=== PATIENT | female | born 1925 | race Caucasian/White ===

== ENCOUNTER 2016-11-03 11:25 | Inpatient (IN) | payer OTHER ==
[~2016-11-03] VITALS: Ht 152.4 cm; Wt 58.0 kg
[~2016-11-03 11:25] MED LIST: ADV25050 INH; AMLO-147 PO; ASPI-664 PO; ATOR20TA38 PO; CITA20TA11 PO; DOCU-159 PO; DONE10TA7 PO; ENOX30DI2 SC; HYDR-3498 PO; LORA-441 PO; OMEP40CA6 PO; TEMA15CA PO
[2016-11-03] MEDS ORDERED: CEFEPIME 2GM/50 ML (PMX) 50 ML IVPB STA (11:37)
[2016-11-03] MEDS ORDERED: SODIUM CHLORIDE 0.9% 1L BAG IV* STA (11:37)
[2016-11-03] MEDS ORDERED: ACETAMINOPHEN 650 MG SUPP PR ONE (12:00)
[2016-11-03] MEDS ORDERED: VANCOMYCIN 1 GM (PMX) 250 ML IVPB ONE (12:00)
[2016-11-03] MEDS ORDERED: CITA10TA72 PO (12:08)
[2016-11-03 12:09] LABS: ADD SCAN DIFF NO
[2016-11-03] MEDS ORDERED: QUET25TA33 PO (12:09)
[2016-11-03] MEDS ORDERED: ENAL5TAB PO (12:10)
[2016-11-03] MEDS ORDERED: ACET325T45 PO (12:10)
[2016-11-03] MEDS ORDERED: LEVO250T9 PO (12:11)
[2016-11-03 12:23] LABS: ABNORMAL IP MESSAGE 1; BASOPHILS % 0.2 % (0.0-2.0); HEMATOCRIT 31.4 % (37.0-47.0); HEMOGLOBIN 9.7 g/dl (12.0-16.0); LYMPHOCYTES # 0.6 10^3/ul (0.8-2.9); LYMPHOCYTES % 6.3 % (15.0-51.0); MEAN CORPUSCULAR HEMOGLOBIN 30.6 pg (29.0-33.0); MEAN CORPUSCULAR HGB CONC 30.9 g/dl (32.0-37.0); MEAN CORPUSCULAR VOLUME 99.1 fl (82.0-101.0); MEAN PLATELET VOLUME 11.3 fl (7.4-10.4); MONOCYTE # 0.3 10^3/ul (0.3-0.9); MONOCYTES % 3.4 % (0.0-11.0); NEUTROPHIL # 8.2 10^3/ul (1.6-7.5); NEUTROPHILS % 89.6 % (39.0-77.0); NUCLEATED RED BLOOD CELLS% 0.3 /100WBC (0.0-0.0); PLATELET COUNT 283 10^3/UL (140-415); RED BLOOD COUNT 3.17 10^6/ul (4.20-5.40); RED CELL DISTRIBUTION WIDTH 15.7 % (11.5-14.5); WHITE BLOOD COUNT 9.1 10^3/ul (4.8-10.8)
--- NOTE | 2016-11-03 12:25 | RADRPT ---
PROCEDURE: XR Chest. CLINICAL INDICATION: Chest pain TECHNIQUE: Single frontal view of the chest was obtained COMPARISON: 06/25/15 FINDINGS: The heart is enlarged. The thoracic aorta is calcified. There is elevation of the right diaphragm with mild bibasilar atelectatic changes. There is no pleural effusion or pneumothorax. RPTAT: AA IMPRESSION: Mild cardiomegaly. Calcified aorta consistent with atherosclerotic disease. Mild bibasilar atelectatic changes. .Jaquan Maldonado MD, Date Time Electronically viewed and signed by .Jaquan Maldonado MD, on 11/03/2016 12:24 .S/
[2016-11-03 12:26] LABS: ALBUMIN 4.2 g/dl (3.3-4.9); POTASSIUM 5.8 mmol/L (3.5-5.1)
[2016-11-03 12:29] LABS: ALBUMIN/GLOBULIN RATIO 1.5; BILIRUBIN,INDIRECT 0.4 mg/dl (0-1.1); BILIRUBIN,TOTAL 0.4 mg/dl (0.2-1.3); CREATININE 3.96 mg/dl (0.44-1.00)
[2016-11-03 12:30] LABS: CALCIUM 8.9 mg/dl (8.4-10.2)
[2016-11-03 12:31] LABS: INR 1.22; PROTIME 15.5 Sec (12.2-14.2); PT RATIO 1.2
--- NOTE | 2016-11-03 12:31 | RADRPT ---
PROCEDURE: CT Brain without contrast. CLINICAL INDICATION: Altered mental status TECHNIQUE: CT scan of the brain was performed on a multidetector high-resolution CT scan. Axial im aging was obtained of the brain without contrast administration. Coronal and sagittal reformatted i mages were obtained from the axial source images. Standard CT scan of the head without contrast prot ocols were performed. The total exam CTDI equals 42.81 mGy and the total exam DLP equals 630.2 mGy-cm. One or more of the following dose reduction techniques were used: - Automated exposure control. - Adjustment of the mA and/or kV according to patient size. Use of iterative reconstruction technique. COMPARISON: MR brain 01/21/2011. FINDINGS: The ventricular system and peripheral CSF spaces are proportionately and diffusely prominent consist ent with moderate to severe generalized cerebral volume loss. There is moderate to severe generaliz ed cerebellar volume loss. There is extensive periventricular and subcortical deep white matter holley nges consistent with chronic microvascular ischemic disease. Negative for intracranial masses hemor rhages or midline shift. There is remote lacunar infarct involving the right internal capsule and c cheli radiata. The bones and calvarium are intact. There is right sphenoid and bilateral ethmoid si nus disease. The frontal sinuses are hypoplastic. The mastoids are unremarkable. IMPRESSION: 1. No evidence of intracranial masses hemorrhages or midline shift. 2. Moderate to severe generalized cerebral volume loss and cerebellar volume loss. 3. Extensive nonspecific chronic microvascular ischemic disease. 4. Remote lacunar infarct involving the right internal capsule and euceda radiata. RPTAT:AAJJ Physician Dorota Date Time Electronically viewed and signed by Physician Dorota on 11/03/2016 12:31 BM/
[2016-11-03 12:32] LABS: PARTIAL THROMBOPLASTIN TIME 33.9 Sec (25.0-35.0)
[2016-11-03 12:41] LABS: TROPONIN-I 0.023 ng/ml (0.00-0.12)
[2016-11-03] MEDS ORDERED: ONDANSETRON 4 MG INJ IV PRN ×2 (13:30→14:30)
[2016-11-03] MEDS ORDERED: ACETAMINOPHEN 325 MG TAB PO PRN ×2 (13:30→14:30)
[2016-11-03 14:26] VITALS: TEMP 98.1
[2016-11-03 14:30] LABS: ADD UMIC YES; URINE BILIRUBIN (Dip) NEGATIVE (NEGATIVE); URINE BLOOD (Dip) TRACE (NEGATIVE); URINE COLOR YELLOW (YELLOW); URINE GLUCOSE (Dip) NEGATIVE (NEGATIVE); URINE KETONES (Dip) TRACE (NEGATIVE); URINE LEUKOCYTE ESTERASE (Dip) 3+ (NEGATIVE); URINE NITRITE (Dip) NEGATIVE (NEGATIVE); URINE TOTAL PROTEIN (Dip) TRACE (NEGATIVE); URINE UROBILINOGEN (Dip) 0.2 E.U./dL (0.1-1.0)
[2016-11-03] MEDS ORDERED: VANCOMYCIN IV PER PHARMACY XX SCH ×2 (14:30→21:00)
[2016-11-03] MEDS ORDERED: MAGNESIUM HYDROXIDE 30ML CUP PO PRN (14:30)
[2016-11-03] MEDS ORDERED: NACL 0.9% 3 ML SYG IV SCH (14:30)
[2016-11-03] MEDS ORDERED: HYDROCODONE/APAP (5/325) TAB PO PRN (14:30)
[2016-11-03] MEDS ORDERED: DOCUSATE SODIUM 100 MG CAP PO PRN (14:30)
[2016-11-03 14:40] LABS: BACTERIA,URINE MANY
[2016-11-03] MEDS ORDERED: ALBU2.5V3 NEB (14:56)
[2016-11-03] MEDS ORDERED: DOCU-144 PO (14:57)
[2016-11-03] MEDS ORDERED: ENAL5TAB81 PO (14:58)
[2016-11-03] MEDS ORDERED: ONDA8TAB9 PO (14:58)
[2016-11-03] MEDS ORDERED: HYDR-902 PO (14:59)
[2016-11-03] MEDS ORDERED: PROM6.2514 PO (14:59)
--- NOTE | 2016-11-03 15:00 | ERA ---
ER Documentation Chief Complaint Date/Time DATE: 11/03/16 TIME: 14:56 Chief Complaint GENERAL WEAKNESS AND FEVER WITH COUGH FOR THE PAST FEW DAYS. HPI Patient is an 89-year-old female who presents with shortness of breath and weakness. Please note the history and physical exam is limited secondary to the patient's mental status. The patient was brought in by ambulance. She came from home. I cannot obtain history otherwise. ROS All systems reviewed and are negative except as per history of present illness. Medications Home Meds Reported Medications Hydrocodone/Acetaminophen ([place]ris 10-325 Tablet) 1 Each Tablet, 1 EACH PO Q6 Y for PAIN, TAB 11/03/16 Promethazine Hcl* (Promethazine Hcl* Syrup) 6.25 Mg/5 Ml Syrup, 6.25 MG PO Q4 Y for COUGH, ML 11/03/16 Enalapril Maleate* (Vasotec*) 5 Mg Tablet, 5 MG PO DAILY, TAB 11/03/16 Ondansetron Hcl* (Zofran*) 8 Mg Tablet, 8 MG PO Q4 Y for NAUSEA AND OR VOMITING , TAB 11/03/16 Docusate Sodium* (Colace*) 100 Mg Capsule, 100 MG PO TID, #60 CAP 11/03/16 Albuterol Sulfate* (Albuterol Sulfate* Neb) 0.083%-3 Ml Neb, 2.5 MG NEB Q6 Y for WHEEZING AND SOB, #30 VIAL 11/03/16 Levofloxacin* (Levofloxacin*) 250 Mg Tablet, 250 MG PO DAILY, TAB FOR 7 DAYS STARTED 11-02-16 11/03/16 Enalapril Maleate* (Enalapril Maleate*) 5 Mg Tablet, 5 MG PO DAILY, TAB 11/03/16 Acetaminophen* (Acetaminophen*) 325 Mg Tablet, 325 MG PO Q6 Y for PAIN AND OR ELEVATED TEMP, #30 TAB 11/03/16 Quetiapine Fumarate* (Quetiapine Fumarate*) 25 Mg Tablet, 25 MG PO TID, TAB MORNING AFTER LUNCH AND BEDTIME 11/03/16 Citalopram Hydrobromide* (Celexa*) 10 Mg Tablet, 10 MG PO DAILY, #30 TAB 11/03/16 Omeprazole* (Omeprazole*) 40 Mg Capsule.dr, 40 MG PO DAILY, CAP 04/30/15 Amlodipine Besylate* (Amlodipine Besylate*) 10 Mg Tablet, 10 MG PO DAILY, TAB 04/30/15 Discontinued Reported Medications Atorvastatin Calcium* (Atorvastatin Calcium*) 20 Mg Tablet, 20 MG PO HS, TAB 04/30/15 Aspirin (Low Dose Aspirin) 81 Mg Tablet.dr, 81 MG PO DAILY 04/30/15 Lorazepam* (Ativan*) 0.5 Mg Tablet, 0.5 MG PO HS Y for SLEEP, TAB 04/30/15 Temazepam* (Temazepam*) 15 Mg Capsule, 15 MG PO HS Y for INSOMNIA, CAP 04/30/15 Docusate Sodium* (Docusate Sodium*) 100 Mg Capsule, 100 MG PO TID, CAP 04/30/15 Citalopram Hydrobromide* (Celexa*) 20 Mg Tablet, 20 MG PO DAILY, TAB 04/30/15 Donepezil* (Aricept*) 10 Mg Tablet, 10 MG PO DAILY 09/14/11 Discontinued Scripts Hydrocodone Bit/Acetaminophen (Anexsia 5-325 Mg Tablet) 1 Tab Tab, 2 TAB PO Q6H Y for SEVERE PAIN LEVEL 7-10 for 30 Days, TAB Prov:ИРИНА AGUILAR 06/26/15 Hydrocodone Bit/Acetaminophen (Anexsia 5-325 Mg Tablet) 1 Tab Tab, 1 TAB PO Q6H Y for MODERATE PAIN LEVEL 4-6 for 30 Days, TAB Prov:ИРИНА AGUILAR 06/26/15 Enoxaparin Sodium* (Enoxaparin Sodium*) 30 Mg/0.3 Ml Soln, 30 MG SC DAILY for 14 Days Prov:ИРИНА AGUILAR 06/26/15 Salmeterol Xinaf/Fluticasone* (Advair*) 1 Inh Inha, 1 INH INH BID RESP THERAPY for 30 Days Prov:ИРИНА AGUILAR 05/06/15 Allergies Allergies: Coded Allergies: No Known Allergy (Verified , 11/03/16) PMhx/Soc History of Surgery: Yes (HIP SURGERY/RIGHT KNEE SURGERY) Anesthesia Reaction: No Hx Neurological Disorder: No Hx Respiratory Disorders: No Hx Cardiac Disorders: Yes (HYPERLIPIDEMIA,HTN) Hx Psychiatric Problems: Yes Hx Miscellaneous Medical Probl: Yes (S/P LEFT HIP HERNIATHROPLASTY) Hx Alcohol Use: No Hx Substance Use: No Hx Tobacco Use: No Smoking Status: Never smoker FmHx Unable to obtain Physical Exam Vitals Vital Signs Date Time Temp Pulse Resp B/P Pulse Ox O2 Delivery O2 Flow Rate FiO2 11/03/16 14:26 98.1 89 18 96/78 98 Mask 8.0 11/03/16 12:45 Simple Mask 8.0 11/03/16 12:44 Simple Mask 8 11/03/16 12:38 101.5 11/03/16 11:28 99.9 110 34 109/67 94 Physical Exam Const: Chronically ill Head: Atraumatic Eyes: Normal Conjunctiva ENT: Normal External Ears, Nose and Mouth. Neck: Full range of motion..~ No meningismus. Resp: Decreased breath sounds bilaterally Cardio: Regular rate and rhythm, no murmurs Abd: Soft, non tender, non distended. Normal bowel sounds Skin: Pale skin Back: No midline or flank tenderness Ext: No cyanosis, or edema Neur: Altered does not follow commands Result Diagram: 11/03/16 1155 11/03/16 1155 Results 24 hrs Laboratory Tests Test 11/03/16 11:55 11/03/16 12:00 11/03/16 14:00 White Blood Count 9.110^3/ul Red Blood Count 3.1710^6/ul Hemoglobin 9.7g/dl Hematocrit 31.4% Mean Corpuscular Volume 99.1fl Mean Corpuscular Hemoglobin 30.6pg Mean Corpuscular Hemoglobin Concent 30.9g/dl Red Cell Distribution Width 15.7% Platelet Count 02108^3/UL Mean Platelet Volume 11.3fl Neutrophils % 89.6% Lymphocytes % 6.3% Monocytes % 3.4% Eosinophils % 0.0% Basophils % 0.2% Nucleated Red Blood Cells % 0.3/100WBC Neutrophils # 8.210^3/ul Lymphocytes # 0.610^3/ul Monocytes # 0.310^3/ul Eosinophils # 0.010^3/ul Basophils # 0.010^3/ul Nucleated Red Blood Cells # 0.010^3/ul Prothrombin Time 15.5Sec Prothrombin Time Ratio 1.2 INR International Normalized Ratio 1.22 Activated Partial Thromboplast Time 33.9Sec Sodium Level 141mmol/L Potassium Level 5.8mmol/L Chloride Level 101mmol/L Carbon Dioxide Level 21mmol/L Anion Gap 25 Blood Urea Nitrogen 102mg/dl Creatinine 3.96mg/dl Glucose Level 162mg/dl Calcium Level 8.9mg/dl Total Bilirubin 0.4mg/dl Direct Bilirubin 0.00mg/dl Indirect Bilirubin 0.4mg/dl Aspartate Amino Transf (AST/SGOT) 35IU/L Alanine Aminotransferase (ALT/SGPT) 26IU/L Alkaline Phosphatase 64IU/L Troponin I 0.023ng/ml Total Protein 7.0g/dl Albumin 4.2g/dl Globulin 2.80g/dl Albumin/Globulin Ratio 1.50 Lactic Acid Level 7.1mmol/L Urine Color YELLOW Urine Clarity CLEAR Urine pH 5.5 Urine Specific [place] 1.015 Urine Ketones TRACE Urine Nitrite NEGATIVE Urine Bilirubin NEGATIVE Urine Urobilinogen 0.2 E.U./dL Urine Leukocyte Esterase 3+ Urine Microscopic RBC 5-10/HPF Urine Microscopic WBC >50/HPF Urine Epithelial Cells FEW Urine Bacteria MANY Urine Hemoglobin TRACE Urine Glucose NEGATIVE% Urine Total Protein TRACE Current Medications Medications (Trade) Dose Ordered Sig/Tammy Route PRN Reason Start Time Stop Time Status Last Admin Dose Admin Sodium Chloride 1360 ml 1,360 ml BOLUS OVER 2 HOURS STAT IV* 11/03/16 11:37 11/03/16 11:39 DC 11/03/16 12:42 Cefepime HCl 50 ml @ 100 mls/hr ONCE STAT IVPB 11/03/16 11:37 11/03/16 12:06 DC 11/03/16 12:44 Vancomycin HCl (Vancocin) 250 ml @ 125 mls/hr ONCE ONCE IVPB 11/03/16 12:00 11/03/16 13:59 DC 11/03/16 12:54 Acetaminophen (Tylenol Supp) 650 mg ONCE ONCE [place] 11/03/16 12:00 11/03/16 12:01 DC 11/03/16 12:43 Ondansetron HCl (Zofran Inj) 4 mg ER BRIDGE PRN IV NAUSEA AND/OR VOMITING 11/03/16 13:30 11/03/16 14:21 DC Acetaminophen 650 mg 650 mg ER BRIDGE PRN PO MILD PAIN/FEVER 11/03/16 13:30 11/03/16 14:21 DC Sodium Chloride (NS) 1,000 ml @ 100 mls/hr Q10H IV 11/03/16 14:06 IV Flush (NS 3 ml) 3 ml PER PROTOCOL IV 11/03/16 14:30 Ondansetron HCl (Zofran Inj) 4 mg Q6H PRN IV NAUSEA AND/OR VOMITING 11/03/16 14:30 Acetaminophen (Tylenol Tab) 650 mg Q6H PRN PO PAIN LEVEL 1-3 OR FEVER 11/03/16 14:30 Acetaminophen/ Hydrocodone Bitart ([place] (5/325)) 1 tab Q6H PRN PO MODERATE PAIN LEVEL 4-6 11/03/16 14:30 Docusate Sodium (Colace) 100 mg Q12H PRN PO CONSTIPATION 11/03/16 14:30 Magnesium Hydroxide (Milk Of Mag) 30 ml DAILY PRN PO CONSTIPATION 11/03/16 14:30 Bisacodyl (Dulcolax Supp) 10 mg DAILY PRN [place] CONSTIPATION 11/03/16 14:30 Famotidine (Pepcid Iv) 20 mg DAILY IV 11/03/16 15:00 Citalopram Hydrobromide (Celexa) 10 mg DAILY PO 11/04/16 09:00 Quetiapine Fumarate (Seroquel) 25 mg QHS PO 11/03/16 21:00 Vancomycin HCl VANCOMYCIN PER PHARMACY PER PROTOCOL XX 11/03/16 14:30 UNV Cefepime HCl (Maxipime 2gm/50 ml (Pmx)) 50 ml @ 100 mls/hr Q24H IVPB 11/04/16 21:00 Procedures/MDM CT brain shows no acute bleed per radiology. Chest x-ray shows no obvious pneumonia or pneumothorax per radiology. Admit MDM: Patient's infectious symptoms have not stabilized and the patient is at risk of rapid decompensation. The patient will be admitted for careful hydration, antibiotic therapy, and infectious source control. Severe Sepsis criteria: Infectious source: Cystitis End organ damage indicated by: Lactate greater than 2 Sepsis Management: Time of recognition of severe sepsis/septic shock: 12:00 Within 3 hours of recognition: Blood cultures x 2 before broad-spectrum antibiotics: Yes 30 ml/kg NS bolus Completed Initial lactate 7.1 Repeat lactate pending Septic Shock Assessment: Any lactic acid > 4.0 yes Persistent hypotension (SBP < 90 or 40 mmHg drop, MAP < 65) despite 30 mL/kg IV fluid bolus No Volume Re-assessment for Septic Shock (post 30 ml/kg bolus): Temp 98.1, BP 96/78, HR 89, RR 18, Pox 98% Heart Regular rate & rhythm Lungs No crackles Skin Warm & dry Cap Refill Less than 2 seconds Peripheral pulses Radially present Persistent Hypotension Treatment: Comfort care No Central line not required Vasopressor started not required I considered further perfusion assessment with CVP measurement, SCVO2, bedside ultrasound volume assessment, passive leg raise, trial of further fluid bolus. And proceeded with normal saline 30 mL/kg fluid bolus, vancomycin and cefepime IV, and admission to Dr. Aguilar as the patient has regal insurance. Accepting Care Team Current data and ongoing care discussed. Admitting Physician: Dr. Aguilar Sales Program Coordinator(s): None Outstanding Data: Repeat lactic acid and culture results Critical Care: Critical care time 35 minutes Emergent fluid management while maintaining close respiratory support. Provision of immediate and broad-spectrum antibiotic therapy. Simultaneous assessment for possible sources in order to direct targeted therapy. Consideration for invasive and chemical support to prevent cardiopulmonary collapse. Departure Diagnosis: Primary Impression: Hyperkalemia Additional Impressions: Anemia Qualified Code: D64.9 - Anemia, unspecified type Septic shock Cystitis Condition: Serious LAM REYNOLDS MD November 03, 2016 15:00
[2016-11-03] MEDS ORDERED: MORP15TA92 PO (15:01)
[2016-11-03] MEDS ORDERED: LORA-444 PO (15:02)
[2016-11-03] MEDS ORDERED: LACT20SO2 PO (15:03)
[2016-11-03] MEDS ORDERED: PROC25SU RC (15:03)
[2016-11-03] MEDS ORDERED: DIPH28.32 TOP (15:04)
[2016-11-03] MEDS ORDERED: ACET120S37 PR (15:06)
[2016-11-03] MEDS ORDERED: ACET80SU5 PR (15:06)
[2016-11-03] MEDS: SOD CHLORIDE 0.9% 1,000 ML IV SCH ×2 (16:09→20:02)
[2016-11-03] MEDS: FAMOTIDINE 20 MG INJ IV SCH (16:09)
[2016-11-03] MEDS ORDERED: NA BICARBONATE 8.4% 50 ML SYG IV STA ×2 (16:16→16:19)
[2016-11-03] MEDS ORDERED: INSULIN REGULAR, HUMAN 100 UNIT/1 ML 3ML VIAL IV STA (16:16)
[2016-11-03] MEDS ORDERED: CA CHLORIDE 10% 10 ML SYRINGE IV STA (16:16)
[2016-11-03] MEDS ORDERED: ALBUTEROL 0.5% (NEB) 2.5 MG/0.5 ML AMP INH STA (16:19)
[2016-11-03] MEDS ORDERED: INSULIN REGULAR 10 ML INJ IV STA (16:19)
[2016-11-03] MEDS ORDERED: SOD CHLORIDE 0.9% 500 ML IV ONE (16:30)
[2016-11-03] MEDS ORDERED: DEXTROSE 50% 50 ML SYRINGE IV PRN ×2 (16:30)
[2016-11-03] MEDS ORDERED: SOD CHLORIDE 0.9% 250 ML IV ONE (16:30)
[2016-11-03] MEDS: NA POLYST SULFON 15 GM/60 ML BTL PO ONE ×2 (16:30→16:40)
[2016-11-03] MEDS ORDERED: DEXTROSE 50% 50 ML SYRINGE IV STA (16:56)
[2016-11-03] MEDS ORDERED: BUPIVACAINE 0.25% (MPF) 30 ML INJ ONE (17:29)
--- NOTE | 2016-11-03 17:30 | HP ---
DATE OF ADMISSION: 11/03/2016 PRIMARY CARE PHYSICIAN: The patient is currently under the care of [facility]. CHIEF COMPLAINT ON ADMISSION: Fever, change of mental status. 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 The patient's daughter managed to feed her a little bit apparently, but she was having nausea and vomiting 3 days ago. She is under the care the [facility] so apparently on Tuesday, therefore, 2 days ago they act ually gave her doses of morphine and Ativan. Apparently aiming for comfort measures and comfort car e at that time. By the next day; therefore, yesterday according to the daughter, they gave her anti biotics and today, the patient seems much more lethargic. She was moaning throughout according to t he daughter. She was taking deep breaths and she seems to be struggling and having some respiratory distress. Therefore, she decided to bring her to the hospital. In the emergency department, she w as found to be anuric, renal failure. A Olivo catheter was placed with almost no urine output. On her laboratory data, she was uremic with a BUN of 100. She is now also hyperkalemic with a potassiu m of 6.2 and lactic acid is up to 7. She was febrile in the emergency department here with temperat ure up to 101.5. She is slightly hypotensive and tachycardic. She is on an 8 liter mask. She did receive IV fluids, broad spectrum antibiotics and I did verify with the family, she is a DNR with patria jin treatment only. No transferred to ICU, no invasive treatment. Antibiotics, IV fluids are oka y, supplemental oxygen okay, but no further aggressive treatment. After a long discussion with the family, we agreed to the fact that the patient will be kept in the hospital on IV fluids and IV anti biotics to see if there is any chance of return of renal function or improvement. At the same time, she will be given very low doses of morphine for pain control as she is moaning and complaining of generalized aches and supplemental oxygen via face mask. However, she will not be a candidate for a ny pressors, no resuscitative effort and likely no minimally invasive ventilator; therefore no BiPAP either. She is being admitted to a medical/surgical bed for supportive care mainly. The patient h erself is unable to give any history at all. Therefore, all the history was obtained from the tejal ray's family at the bedside, her daughter and her son. ALLERGIES: NO KNOWN ALLERGIES. PAST MEDICAL HISTORY: 1. Moderate to severe dementia. 2. Hypertension. 3. Hyperlipidemia. 4. Severe arthritis, possibly rheumatoid arthritis. PAST SURGICAL HISTORY: 1. Status post right hip fracture repair 4 years ago. 2. Status post left hip hemiarthroplasty in 2014. REVIEW OF SYSTEMS: Unable to obtain from patient herself but according to the family, lately the tyron agrawal has been complaining of generalized ache, again nausea, vomiting is present. No hematemesis n oted. Change of mental status is also noted. She is bed bound. SOCIAL HISTORY: The patient currently lives with family. No tobacco or alcohol use. She is on [facility] with [facility]. OUTPATIENT MEDICATIONS: 1. Promethazine 6.25 mg p.o. q.4h. p.r.n. cough. 2. Levaquin 250 mg p.o. daily was started on 11/02/2016. 3. Albuterol 2.5 mg q.6h. p.r.n. wheezing or shortness of breath. 4. Norvasc 10 mg p.o. daily. 5. Enalapril 5 mg p.o. daily. 6. Tylenol 365 p.o. q.6 hours p.r.n. elevated temperature. 7. Celexa 10 mg p.o. daily. 8. [place] 5/325 one tab p.o. q.6h. p.r.n. pain. 9. Ativan 2 mg p.o. 2 hours p.r.n. anxiety. 10. MS Contin 5 mg p.o. q.2h. p.r.n. pain. 11. Seroquel 25 mg p.o. t.i.d. 12. Lactulose 20 mg p.o. q.6h. p.r.n. constipation. 13. Colace 100 mg p.o. t.i.d. 14. Omeprazole 40 mg p.o. daily. 15. Zofran 8 mg p.o. q.4h. p.r.n. nausea or vomiting. 16. Prochlorperazine 25 mg rectally daily p.r.n. constipation. 17. Diphenhydramine and zinc q.i.d. as needed. PHYSICAL EXAMINATION: VITAL SIGNS: Temperature is 98.1 with a T-max of 101.5 rectally, pulse 89. Sinus rhythm varies bet ween 89 and 110, respiratory rate of 18, currently on 8 liters simple mask, satting 98%. Blood pres sure is 109/67. GENERAL: She is somnolent, lethargic but easily arousable. She is moaning in pain, but has a hard time localizing exactly where. She is not answering any questions even in Telugu. HEENT: Pupils are equally round and reactive to light. Extraocular muscles are intact. Anicteric sclerae. NECK: No JVD, no thyromegaly noted. HEART: Regular rhythm, tachycardic. LUNGS: Decreased breath sounds at the bases, otherwise good air movement at least on a simple mask. EXTREMITIES: No edema, clubbing or cyanosis, but the poor muscle tone consistent with her being bed ridden. Neurologically very difficult to assess at this time. The patient is not moving her lower extremity much, but she is moving her upper extremities. She is altered and she is not following co mmands. EKG shows sinus tachycardia in the upper 100s. RADIOLOGICAL DATA: 1. Chest x-ray shows mild cardiomegaly, calcified aorta consistent with atherosclerotic disease, mi ld basilar atelectatic changes. 2. CAT scan of the brain shows no evidence of intracranial masses, hemorrhages or midline shift, mo derate to severe generalized cerebellar volume loss, extensive nonspecific chronic microvascular isc hemic disease, remote lacunar infarct involving the right internal capsule and euceda radiata. ASSESSMENT AND PLAN: This is an 89-year-old female with: 1. Altered mental status episodes of fevers, all consistent with sepsis. At this point, her lactat e came back at 7.1. She is on broad spectrum antibiotics including vancomycin and cefepime. She is also put on IV fluids. Blood cultures and urine cultures have been sent. Her UA is already slight ly positive. According to the family, she is a DO NOT RESUSCITATE and mostly constant measures; the refore supportive care only. No pressors. IV fluids will be continued. She will be admitted to a medical/surgical bed. 2. Acute renal failure. The patient is anuric currently with ongoing hyperkalemia, elevated lactat e and possibly lactic acidosis. She will be given another bolus of IV fluids. Will continue normal saline at 100 mL an hour. She is definitely hypovolemic and dehydrated. Will treat her hyperkalem ia per protocol. Repeat potassium and will repeat her potassium and her laboratory data in a.m. for further intervention. Again, the patient is a DO NOT RESUSCITATE supportive care only. A Olivo ca theter has been placed and currently no urine output seen. 3. Dementia already on hospice. Apparently she is a moderate to severe bed bound but still intera cting with family. She still remains on hospice at this point only getting supportive care for acut e infection and renal failure. 4. Hypertension. All medications have been discontinued so far given the fact that she is septic a nd her blood pressure is borderline. 5. Reported possible rheumatoid arthritis, severe arthritis, currently in pain. I already discusse d with the family. She will be given low dose morphine for pain control and comfort even if it mean s that it may worsen her mental status slightly but they are agreeable to focus on comfort along wit h supportive care. 6. Chronic anemia, currently hemoglobin around 9.7 and stable. We will continue to monitor. 7. Prophylaxis: Sequential compression devices to lower extremity for DVT prophylaxis and Pepcid f or GI prophylaxis. 8. Disposition. The patient is admitted on a medical/surgical bed. She is DNR with emphasis on co mfort even if she is getting supportive treatment for this underlying sepsis and acute renal failure . Dictated By: ИРИНА DEL ROSARIO/NICKO Conf#: [id number] DID#: [id number]
[2016-11-03] MEDS: morphine 2 MG INJ IV PRN (17:56)
[2016-11-03 18:45] VITALS: BP 129/62; PULSE 103; RESP 18
[2016-11-03 19:50] VITALS: BP 118/69; RESP 12
[2016-11-03] MEDS: QUETIAPINE 25 MG TAB PO SCH (20:07)
[2016-11-03 23:02] LABS: CALCIUM 9.1 mg/dl (8.4-10.2); CREATININE 3.52 mg/dl (0.44-1.00); POTASSIUM 4.9 mmol/L (3.5-5.1)
[2016-11-03] MEDS ORDERED: DEXTROSE 5%-0.9% NACL 1,000 ML IV SCH (23:30)
[2016-11-04 06:15] LABS: ADD SCAN DIFF NO
[2016-11-04 06:30] LABS: ABNORMAL IP MESSAGE 1; HEMATOCRIT 23.4 % (37.0-47.0); HEMOGLOBIN 7.3 g/dl (12.0-16.0); MEAN CORPUSCULAR HEMOGLOBIN 31.7 pg (29.0-33.0); MEAN CORPUSCULAR HGB CONC 31.2 g/dl (32.0-37.0); MEAN CORPUSCULAR VOLUME 101.7 fl (82.0-101.0); MEAN PLATELET VOLUME 11.5 fl (7.4-10.4); PLATELET COUNT 186 10^3/UL (140-415); RED CELL DISTRIBUTION WIDTH 15.8 % (11.5-14.5); WHITE BLOOD COUNT 6.3 10^3/ul (4.8-10.8)
[2016-11-04 06:59] LABS: ALBUMIN 3.2 g/dl (3.3-4.9); ALBUMIN/GLOBULIN RATIO 1.23; BILIRUBIN,INDIRECT 0.1 mg/dl (0-1.1); BILIRUBIN,TOTAL 0.1 mg/dl (0.2-1.3); CALCIUM 8.8 mg/dl (8.4-10.2); CREATININE 3.84 mg/dl (0.44-1.00); MAGNESIUM 2.2 mg/dl (1.7-2.5); PHOSPHORUS 8.7 mg/dl (2.5-4.9); POTASSIUM 5.5 mmol/L (3.5-5.1); TOTAL PROTEIN 5.8 g/dl (6.1-8.1)
[2016-11-04 07:49] VITALS: BP 130/62; RESP 18
[2016-11-04] MEDS: CITALOPRAM 20 MG TAB PO SCH (09:00)
[2016-11-04 09:32] LABS: LYMPHOCYTES # 1.1 10^3/ul (0.8-2.9); MONOCYTE # 0.1 10^3/ul (0.3-0.9); MYELOCYTES # 0.2; NEUTROPHIL # 2.2 10^3/ul (1.6-7.5)
[2016-11-04] MEDS: FAMOTIDINE 20 MG INJ IV SCH (10:14)
[2016-11-04] MEDS ORDERED: NA BICARBONATE 8.4% 50 ML SYG IV STA (11:17)
[2016-11-04] MEDS ORDERED: CA CHLORIDE 10% 10 ML SYRINGE IV STA (11:17)
--- NOTE | 2016-11-04 11:37 | PN ---
Date/Time of Note Date/Time of Note DATE: 11/04/16 TIME: 11:09 Assessment/Plan VTE Prophylaxis VTE Prophylaxis Intervention: SCD's Lines/Catheters IV Catheter Type (from Nrs): Peripheral IV Urinary Cath still in place: Yes Reason Cath still needed: other (indicate) (ARF ) Assessment/Plan Assessment/Plan 89-year-old female with: 1. Altered mental status episodes of fevers, all consistent with sepsis and now with 36% bandemia and blood cx with GPC Still with ARF, oligouric now Supportive care IVF/IV abx Follow up Blood cx and Urine cx DNR on modified comfort measures kind of. No pressors. 2. Acute renal failure, Oligo-uric this AM but still with electrolyte imbalance and metabolic acidosis Treat Hyperkalemia this AM and f/u BMP in AM. Starting Bicab gtt Marks catheter with minimal urine output. 3. Dementia already on hospice. Apparently she is a moderate to severe bed bound but still interacting with family. She still remains on hospice at this point only getting supportive care for acute infection and renal failure. 4. Hypertension. All medications have been discontinued so far given the fact that she is septic and her blood pressure stable this AM 5. 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 6. Chronic anemia, Hb this AM down to 7.3, discuss with family as blood transfusion not recommended if focusing on comfort measures but if level critical they want to receive blood transfusion if it seems like she is on the road to recovery. Follow up CBC in AM Prophylaxis: Sequential compression devices to lower extremity for DVT prophylaxis and Pepcid for GI prophylaxis. Disposition. DNR, modified comfort measures and continue supportive care and treatment for underlying bacteremia/sepsis and acute renal failure. Subjective 24 Hr Interval Summary Free Text/Dictation Patient still lethargic this AM and K back up to 5.5 Some urine in marks bag Blood cx with GPC and WBC 6.3 with 36% bandemia On broad spectrum IV abx Exam/Review of Systems Vital Signs Vitals Vital Signs Date Time Temp Pulse Resp B/P Pulse Ox O2 Delivery O2 Flow Rate FiO2 11/04/16 08:00 Simple Mask 8.0 11/04/16 07:49 97.6 97 18 130/62 98 Intake and Output 5/31/17 5/31/17 6/1/17 15:00 23:00 07:00 Intake Total 762 ml Output Total 50 ml Balance 712 ml Exam Constitutional: frail, non-verbal, other (lethargic but arousable, remains non verbal ) Respiratory: diminished breath sounds (bases ), normal air movement, other ( Simple mask in place ) Cardiovascular: nl pulses, regular rate and rhythm Gastrointestinal: non-tender, soft Musculoskeletal: other (poor muscle tone and some contraction ) Extremities: normal pulses, other (no edema, clubbing or cyanosis ) Neurological: V[employer] II-XII intact, lethargic, other (generalised weakness ) Results Result Diagram: 11/04/16 0525 11/04/16 0525 Results 24 hrs Laboratory Tests Test 11/03/16 11:55 11/03/16 12:00 11/03/16 14:00 11/03/16 15:30 White Blood Count 9.1 Red Blood Count 3.17 L Hemoglobin 9.7 L Hematocrit 31.4 L Mean Corpuscular Volume 99.1 Mean Corpuscular Hemoglobin 30.6 Mean Corpuscular Hemoglobin Concent 30.9 L Red Cell Distribution Width 15.7 H Platelet Count 283 Mean Platelet Volume 11.3 #H Neutrophils % 89.6 H Lymphocytes % 6.3 L Monocytes % 3.4 Eosinophils % 0.0 Basophils % 0.2 Nucleated Red Blood Cells % 0.3 H Neutrophils # 8.2 H Lymphocytes # 0.6 L Monocytes # 0.3 Eosinophils # 0.0 Basophils # 0.0 Nucleated Red Blood Cells # 0.0 Prothrombin Time 15.5 H Prothrombin Time Ratio 1.2 INR International Normalized Ratio 1.22 Activated Partial Thromboplast Time 33.9 Sodium Level 141 Potassium Level 5.8 H 6.2 *H Chloride Level 101 Carbon Dioxide Level 21 Anion Gap 25 H Blood Urea Nitrogen 102 H Creatinine 3.96 H Glucose Level 162 Calcium Level 8.9 Total Bilirubin 0.4 Direct Bilirubin 0.00 Indirect Bilirubin 0.4 Aspartate Amino Transf (AST/SGOT) 35 Alanine Aminotransferase (ALT/SGPT) 26 Alkaline Phosphatase 64 Troponin I 0.023 Total Protein 7.0 Albumin 4.2 Globulin 2.80 Albumin/Globulin Ratio 1.50 Lactic Acid Level 7.1 *H 5.0 *H Urine Color YELLOW Urine Clarity CLEAR Urine pH 5.5 Urine Specific [place] 1.015 Urine Ketones TRACE H Urine Nitrite NEGATIVE Urine Bilirubin NEGATIVE Urine Urobilinogen 0.2 E.U./dL Urine Leukocyte Esterase 3+ H Urine Microscopic RBC 5-10 Urine Microscopic WBC >50 Urine Epithelial Cells FEW Urine Bacteria MANY Urine Hemoglobin TRACE Urine Glucose NEGATIVE Urine Total Protein TRACE Test 11/03/16 18:05 11/03/16 22:00 11/04/16 05:25 Lactic Acid Level 6.9 *H 5.9 *H Sodium Level 136 140 Potassium Level 4.9 5.5 H Chloride Level 107 107 Carbon Dioxide Level 19 L 20 L Anion Gap 15 # 19 H Blood Urea Nitrogen 100 H 100 H Creatinine 3.52 H 3.84 H Glucose Level 104 # 144 # Calcium Level 9.1 8.8 White Blood Count 6.3 # Red Blood Count 2.30 #L Hemoglobin 7.3 #L Hematocrit 23.4 #L Mean Corpuscular Volume 101.7 H Mean Corpuscular Hemoglobin 31.7 Mean Corpuscular Hemoglobin Concent 31.2 L Red Cell Distribution Width 15.8 H Platelet Count 186 # Mean Platelet Volume 11.5 H Neutrophils % 35.0 L Band Neutrophils % 36.0 H Lymphocytes % 17.0 Monocytes % 1.0 Eosinophils % Metamyelocytes % 7.0 H Myelocytes % 3.0 H Promyelocytes % 1.0 H Neutrophils # 2.2 Lymphocytes # 1.1 Monocytes # 0.1 L Eosinophils # Metamyelocytes # 0.4 Myelocytes # 0.2 Promyelocytes # 0.1 Phosphorus Level 8.7 H Magnesium Level 2.2 Total Bilirubin 0.1 L Direct Bilirubin 0.00 Indirect Bilirubin 0.1 Aspartate Amino Transf (AST/SGOT) 56 H Alanine Aminotransferase (ALT/SGPT) 34 Alkaline Phosphatase 74 Total Protein 5.8 #L Albumin 3.2 #L Globulin 2.60 Albumin/Globulin Ratio 1.23 Medications Medications Current Medications Ondansetron HCl (Zofran Inj) 4 mg Q6H PRN IV NAUSEA AND/OR VOMITING Last administered on 11/03/16t 17:57; Admin Dose 4 MG; Start 11/03/16 at 14:30 Acetaminophen (Tylenol Tab) 650 mg Q6H PRN PO PAIN LEVEL 1-3 OR FEVER; Start at 14:30 Docusate Sodium (Colace) 100 mg Q12H PRN PO CONSTIPATION; Start 11/03/16 at 14: 30 Magnesium Hydroxide (Milk Of Mag) 30 ml DAILY PRN PO CONSTIPATION; Start at 14:30 Bisacodyl (Dulcolax Supp) 10 mg DAILY PRN [place] CONSTIPATION; Start 11/03/16 at 14 :30 Famotidine (Pepcid Iv) 20 mg DAILY IV Last administered on 11/04/16 10:14; Admin Dose 20 MG; Start 11/03/16 at 15:00 Citalopram Hydrobromide (Celexa) 10 mg DAILY PO ; Start 11/04/16 at 09:00 Quetiapine Fumarate 25 mg 25 mg QHS PO ; Start 11/03/16 at 21:00 Cefepime HCl (Maxipime 2gm/50 ml (Pmx)) 50 ml @ 100 mls/hr Q24H IVPB ; Start at 21:00 Morphine Sulfate (morphine) 1 mg Q4H PRN IV MODERATE PAIN LEVEL 4-6; Start at 16:30 Morphine Sulfate (morphine) 2 mg Q4H PRN IV PAIN LEVEL 6-10 Last administered on 11/03/16 17:56; Admin Dose 2 MG; Start 11/03/16 at 16:30 Dextrose (D50w Syringe) ONCE PRN IV POC BLOOD GLUCOSE <250 MG/DL; Start at 16:30 Dextrose ONCE PRN IV POC BLOOD GLUCOSE <250 MG/DL; Start 11/03/16 at 16:30 Dextrose/Sodium Chloride (D5-NS) 1,000 ml @ 75 mls/hr [id number] IV Last administered on 11/03/16 23:36; Admin Dose 75 MLS/HR; Start 11/03/16 at 23:30 ИРИНА GONZALEZ Nov 04, 2016 11:19
[2016-11-04] MEDS ORDERED: DEXTROSE 5% IV SCH ×2 (12:00→12:30)
[2016-11-04] MEDS ORDERED: SODIUM BICARBONATE IV SCH (12:00)
[2016-11-04] MEDS ORDERED: CALCIUM CHLORIDE IV SCH (12:30)
[2016-11-04] MEDS: ALBUTEROL 0.083% (NEB) 2.5 MG/3 ML AMP NEB PRN (13:16)
[2016-11-04] MEDS: SODIUM BICARBONATE (IV ADD) 100 MEQ in DEXTROSE 5% 1,000 ML IV SCH ×2 (13:57→23:00)
[2016-11-04 19:46] VITALS: BP 117/70; RESP 12
[2016-11-04] MEDS: QUETIAPINE 25 MG TAB PO SCH (21:00)
[2016-11-04] MEDS: CEFEPIME 2GM/50 ML (PMX) 50 ML IVPB SCH (22:08)
[2016-11-05] MEDS: SODIUM BICARBONATE (IV ADD) 100 MEQ in DEXTROSE 5% 1,000 ML IV SCH ×2 (02:22→18:30)
[2016-11-05 05:37] LABS: ADD SCAN DIFF NO
[2016-11-05 05:54] LABS: ABNORMAL IP MESSAGE 1; HEMATOCRIT 19.5 % (37.0-47.0); MEAN CORPUSCULAR HEMOGLOBIN 31.7 pg (29.0-33.0); MEAN CORPUSCULAR HGB CONC 32.8 g/dl (32.0-37.0); MEAN CORPUSCULAR VOLUME 96.5 fl (82.0-101.0); MEAN PLATELET VOLUME 11.7 fl (7.4-10.4); PLATELET COUNT 143 10^3/UL (140-415); RED BLOOD COUNT 2.02 10^6/ul (4.20-5.40); RED CELL DISTRIBUTION WIDTH 15.6 % (11.5-14.5)
[2016-11-05 06:11] LABS: HEMOGLOBIN 6.4 g/dl (12.0-16.0)
[2016-11-05 06:37] LABS: MAGNESIUM 2.1 mg/dl (1.7-2.5); PHOSPHORUS 6.6 mg/dl (2.5-4.9)
[2016-11-05 06:42] LABS: CALCIUM 8.5 mg/dl (8.4-10.2); CREATININE 3.69 mg/dl (0.44-1.00); POTASSIUM 4.7 mmol/L (3.5-5.1)
[2016-11-05 06:51] LABS: ADD SCAN DIFF NO
[2016-11-05 06:56] LABS: ABNORMAL IP MESSAGE 1; HEMATOCRIT 19.3 % (37.0-47.0); MEAN CORPUSCULAR HGB CONC 32.1 g/dl (32.0-37.0); MEAN CORPUSCULAR VOLUME 96.5 fl (82.0-101.0); PLATELET COUNT 136 10^3/UL (140-415); RED CELL DISTRIBUTION WIDTH 15.9 % (11.5-14.5); WHITE BLOOD COUNT 4.6 10^3/ul (4.8-10.8)
[2016-11-05 07:00] LABS: HEMOGLOBIN 6.2 g/dl (12.0-16.0)
[2016-11-05 08:00] VITALS: RESP 12
[2016-11-05 08:16] VITALS: BP 140/63; RESP 7
[2016-11-05] MEDS: CITALOPRAM 20 MG TAB PO SCH (08:41)
[2016-11-05] MEDS ORDERED: SOD CHLORIDE 0.9% 250 ML IV* ONE (08:57)
[2016-11-05] MEDS: FAMOTIDINE 20 MG INJ IV SCH (09:15)
[2016-11-05 10:37] LABS: EOSINOPHILS # 0.1 10^3/ul (0.0-0.5); LYMPHOCYTES # 0.4 10^3/ul (0.8-2.9); MONOCYTE # 0.1 10^3/ul (0.3-0.9)
[2016-11-05 12:21] LABS: LYMPHOCYTES # 0.5 10^3/ul (0.8-2.9); MONOCYTE # 0.1 10^3/ul (0.3-0.9); NEUTROPHIL # 2.6 10^3/ul (1.6-7.5)
[2016-11-05 13:04] VITALS: BP 153/74; RESP 7
--- NOTE | 2016-11-05 13:42 | PN ---
Date/Time of Note Date/Time of Note DATE: 11/05/16 TIME: 13:24 Assessment/Plan VTE Prophylaxis VTE Prophylaxis Intervention: SCD's Lines/Catheters IV Catheter Type (from Nrs): Peripheral IV Urinary Cath still in place: Yes Reason Cath still needed: other (indicate) (ARF on CKD ) Assessment/Plan Assessment/Plan 89-year-old female with: 1. Altered mental status episodes of fevers, all consistent with sepsis. She is still altered and with persistent left shift and bandemia of 27% Blood cx with staph and Urine cx with ESBL Ecoli On Cefepime and Vanco Still with ARF, oligo-uric and uremic. I had another family meeting and family wants to give it another 48 hrs of the current treatment and see if she is going to recover some, but if the patient keeps declining they agree to no escalation of care and comfort with Morphine and Ativan as needed Continue Supportive care, Bicarb gtt and current IV abx Follow up final Blood cx DNR on modified comfort measures kind of. No pressors. No BiPAP 2. Acute renal failure, on CKD, still oligo-uric, on bicarb gtt. Olivo catheter with minimal urine output. 3. Dementia already on hospice. Apparently she is a moderate to severe bed bound but still interacting with family. She still remains on hospice at this point only getting supportive care for acute infection and renal failure. Per family meeting today, since family opting to stay in hospital, they may sign her off 4. Hypertension. All medications have been discontinued so far given the fact that she is septic and her blood pressure stable so far. 5. 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 6. Chronic anemia, Hb this AM down to 6.2, likely mild DIC I had another discussion with family as blood transfusion not recommended if focusing on comfort measures, after compromise, will give her 1 unit pRBC but they understand no further transfusion after today and are agreeable with that. Prophylaxis: Sequential compression devices to lower extremity for DVT prophylaxis and Pepcid for GI prophylaxis. Disposition. DNR, modified comfort measures and continue supportive care and treatment for underlying bacteremia/sepsis and acute renal failure. Very poor prognosis and likely to proceed to full comfort measures w/i 48 hrs if patient survives Subjective 24 Hr Interval Summary Free Text/Dictation Patient remains still critically ill Still with ARF and now also severe Anemia No MS improvement I had another family meeting and family wants to give it another 48 hrs on the current treatment and see if she is going to recover some, but if the patient keeps declining they agree to no escalation of care and comfort with Morphine and Ativan as needed Exam/Review of Systems Vital Signs Vitals Vital Signs Date Time Temp Pulse Resp B/P Pulse Ox O2 Delivery O2 Flow Rate FiO2 11/05/16 13:04 99.7 113 7 153/74 100 11/05/16 08:00 Non Rebreather 8.0 11/04/16 19:57 60 Intake and Output 11/04/16 11/04/16 11/05/16 15:00 23:00 07:00 Intake Total 585 ml 450 ml 1000 ml Output Total 400 ml 700 ml Balance 585 ml 50 ml 300 ml Exam Constitutional: frail, non-verbal, other (lethargic and somewhat arousable ) Respiratory: diminished breath sounds (bilaterally ), labored breathing, other (on FM) Cardiovascular: nl pulses, regular rate and rhythm Gastrointestinal: soft Musculoskeletal: other (poor muscle tone ) Extremities: normal pulses, other (some anasarca seen today ) Neurological: lethargic, other (opens eyes but not folllwing commands and remains non verbal ) Results Result Diagram: 11/05/16 0641 11/05/16 0458 Results 24 hrs Laboratory Tests Test 11/05/16 04:58 11/05/16 06:41 White Blood Count 4.0 #L 4.6 L Red Blood Count 2.02 L 2.00 L Hemoglobin 6.4 *L 6.2 *L Hematocrit 19.5 L 19.3 L Mean Corpuscular Volume 96.5 96.5 Mean Corpuscular Hemoglobin 31.7 31.0 Mean Corpuscular Hemoglobin Concent 32.8 32.1 Red Cell Distribution Width 15.6 H 15.9 H Platelet Count 143 # 136 L Mean Platelet Volume 11.7 H 11.0 H Neutrophils % 49.0 57.0 Band Neutrophils % 31.0 H 27.0 H Lymphocytes % 11.0 L 10.0 L Monocytes % 3.0 3.0 Eosinophils % 2.0 Metamyelocytes % 3.0 H 2.0 H Myelocytes % 1.0 H 1.0 H Neutrophils # 2.0 2.6 Lymphocytes # 0.4 L 0.5 L Monocytes # 0.1 L 0.1 L Eosinophils # 0.1 Metamyelocytes # 0.1 0.1 Myelocytes # 0.0 0.0 Sodium Level 145 H Potassium Level 4.7 Chloride Level 105 Carbon Dioxide Level 25 Anion Gap 20 H Blood Urea Nitrogen 104 H Creatinine 3.69 H Glucose Level 129 Lactic Acid Level 1.5 Calcium Level 8.5 Phosphorus Level 6.6 #H Magnesium Level 2.1 Random Vancomycin Level 9.2 Medications Medications Current Medications Ondansetron HCl (Zofran Inj) 4 mg Q6H PRN IV NAUSEA AND/OR VOMITING Last administered on 11/03/16 17:57; Admin Dose 4 MG; Start 11/03/16 at 14:30 Acetaminophen (Tylenol Tab) 650 mg Q6H PRN PO PAIN LEVEL 1-3 OR FEVER; Start at 14:30 Docusate Sodium (Colace) 100 mg Q12H PRN PO CONSTIPATION; Start 11/03/16 at 14: 30 Magnesium Hydroxide (Milk Of Mag) 30 ml DAILY PRN PO CONSTIPATION; Start at 14:30 Bisacodyl (Dulcolax Supp) 10 mg DAILY PRN [place] CONSTIPATION; Start 11/03/16 at 14 :30 Famotidine (Pepcid Iv) 20 mg DAILY IV Last administered on 11/04/16 10:14; Admin Dose 20 MG; Start 11/03/16 at 15:00 Citalopram Hydrobromide (Celexa) 10 mg DAILY PO ; Start 11/04/16 at 09:00 Quetiapine Fumarate 25 mg 25 mg QHS PO ; Start 11/03/16 at 21:00 Cefepime HCl (Maxipime 2gm/50 ml (Pmx)) 50 ml @ 100 mls/hr Q24H IVPB Last administered on 11/04/16 22:08; Admin Dose 100 MLS/HR; Start 11/04/16 at 21:00 Morphine Sulfate (morphine) 1 mg Q4H PRN IV MODERATE PAIN LEVEL 4-6; Start at 16:30 Morphine Sulfate (morphine) 2 mg Q4H PRN IV PAIN LEVEL 6-10 Last administered on 11/03/16 17:56; Admin Dose 2 MG; Start 11/03/16 at 16:30 Dextrose (D50w Syringe) ONCE PRN IV POC BLOOD GLUCOSE <250 MG/DL; Start at 16:30 Dextrose ONCE PRN IV POC BLOOD GLUCOSE <250 MG/DL; Start 11/03/16 at 16:30 Sodium Bicarbonate/ Dextrose (Na Bicarb/D5W) 1,100 ml @ 100 mls/hr Q11H IV Last administered on 11/05/16 02:22; Admin Dose 100 MLS/HR; Start 11/04/16 at 12: 00 ИРИНА GONZALEZ Nov 05, 2016 13:36
[2016-11-05 19:07] LABS: PLATELET COUNT 143 10^3/UL (140-415)
[2016-11-05 19:26] LABS: INR 1.53; PARTIAL THROMBOPLASTIN TIME 32.1 Sec (25.0-35.0); PROTIME 18.5 Sec (12.2-14.2); PT RATIO 1.4
[2016-11-05 20:03] LABS: D-DIMER 8070.42 ng/ml (<460)
[2016-11-05 20:20] LABS: FIBRIN SPLIT PRODUCT <10 ug/ml (<10)
[2016-11-05] MEDS ORDERED: VANCOMYCIN 1.25 GM in SOD CHLORIDE 0.9% 250 ML IVPB SCH (20:30)
[2016-11-05] MEDS: QUETIAPINE 25 MG TAB PO SCH (21:00)
[2016-11-05 22:05] VITALS: BP 139/68; RESP 18
[2016-11-06] MEDS: CEFEPIME 2GM/50 ML (PMX) 50 ML IVPB SCH ×2 (00:28→21:07)
[2016-11-06 05:08] LABS: ADD SCAN DIFF NO
[2016-11-06 05:14] LABS: ABNORMAL IP MESSAGE 1; HEMATOCRIT 22.9 % (37.0-47.0); HEMOGLOBIN 7.7 g/dl (12.0-16.0); MEAN CORPUSCULAR HEMOGLOBIN 30.7 pg (29.0-33.0); MEAN CORPUSCULAR HGB CONC 33.6 g/dl (32.0-37.0); MEAN CORPUSCULAR VOLUME 91.2 fl (82.0-101.0); MEAN PLATELET VOLUME 11.3 fl (7.4-10.4); PLATELET COUNT 135 10^3/UL (140-415); RED BLOOD COUNT 2.51 10^6/ul (4.20-5.40); RED CELL DISTRIBUTION WIDTH 16.8 % (11.5-14.5); WHITE BLOOD COUNT 4.7 10^3/ul (4.8-10.8)
[2016-11-06 05:37] LABS: CALCIUM 8.2 mg/dl (8.4-10.2); CREATININE 3.36 mg/dl (0.44-1.00); POTASSIUM 3.9 mmol/L (3.5-5.1)
[2016-11-06 07:55] VITALS: BP_SYST 155; BP_DIAS 79; BP_DIAS 99; RESP 18
[2016-11-06] MEDS: FAMOTIDINE 20 MG INJ IV SCH (08:20)
[2016-11-06] MEDS: CITALOPRAM 20 MG TAB PO SCH (08:21)
--- NOTE | 2016-11-06 09:26 | PN ---
Date/Time of Note Date/Time of Note DATE: 11/06/16 TIME: 09:21 Assessment/Plan VTE Prophylaxis VTE Prophylaxis Intervention: heparin Lines/Catheters IV Catheter Type (from Nrs): Saline Lock Urinary Cath still in place: Yes Reason Cath still needed: skin wounds contaminated by urine Assessment/Plan Assessment/Plan Staph bacteremia ESBL UTI AMS severe dementia Chronic anemia Very poor prognosis DNR Cont current therapy No aggressive measures consider GIP in 2 days Subjective 24 Hr Interval Summary Subjective hx not possible: pt non-verbal Exam/Review of Systems Vital Signs Vitals Vital Signs Date Time Temp Pulse Resp B/P Pulse Ox O2 Delivery O2 Flow Rate FiO2 11/06/16 08:31 Simple Mask 8.0 11/05/16 22:05 97.6 105 18 139/68 97 11/04/16 19:57 60 Intake and Output 11/05/16 11/05/16 11/06/16 15:00 23:00 07:00 Intake Total 1050 ml 725 ml Output Total 450 ml 720 ml Balance 600 ml 5 ml Exam Neck: non-tender, supple Respiratory: clear to auscultation Cardiovascular: regular rate and rhythm Gastrointestinal: non-tender, soft Extremities: normal pulses Neurological: confused Results Result Diagram: 11/06/16 0436 11/06/16 0500 Results 24 hrs Laboratory Tests Test 11/05/16 18:20 11/06/16 04:36 11/06/16 05:00 11/06/16 05:34 Platelet Count 143 135 L Prothrombin Time 18.5 H Prothrombin Time Ratio 1.4 INR International Normalized Ratio 1.53 Activated Partial Thromboplast Time 32.1 Thrombin Time 14.0 Fibrinogen 751.0 H Plasma Fibrin Degradation Products <10 D-Dimer 8070.42 H D-Dimer Comment White Blood Count 4.7 L Red Blood Count 2.51 #L Hemoglobin 7.7 #L Hematocrit 22.9 L Mean Corpuscular Volume 91.2 Mean Corpuscular Hemoglobin 30.7 Mean Corpuscular Hemoglobin Concent 33.6 Red Cell Distribution Width 16.8 H Mean Platelet Volume 11.3 H Neutrophils % Eosinophils % Neutrophils # Eosinophils # Sodium Level 147 H Potassium Level 3.9 Chloride Level 105 Carbon Dioxide Level 29 Anion Gap 17 H Blood Urea Nitrogen 99 H Creatinine 3.36 H Glucose Level 118 Calcium Level 8.2 L Lab Scanned Report BLOOD TRANSFUSION Medications Medications Current Medications Ondansetron HCl (Zofran Inj) 4 mg Q6H PRN IV NAUSEA AND/OR VOMITING Last administered on 11/03/16 17:57; Admin Dose 4 MG; Start 11/03/16 at 14:30 Acetaminophen (Tylenol Tab) 650 mg Q6H PRN PO PAIN LEVEL 1-3 OR FEVER; Start at 14:30 Docusate Sodium (Colace) 100 mg Q12H PRN PO CONSTIPATION; Start 11/03/16 at 14: 30 Magnesium Hydroxide (Milk Of Mag) 30 ml DAILY PRN PO CONSTIPATION; Start at 14:30 Bisacodyl (Dulcolax Supp) 10 mg DAILY PRN [place] CONSTIPATION; Start 11/03/16 at 14 :30 Famotidine (Pepcid Iv) 20 mg DAILY IV Last administered on 11/06/16 08:20; Admin Dose 20 MG; Start 11/03/16 at 15:00 Citalopram Hydrobromide (Celexa) 10 mg DAILY PO ; Start 11/04/16 at 09:00 Quetiapine Fumarate 25 mg 25 mg QHS PO ; Start 11/03/16 at 21:00 Cefepime HCl (Maxipime 2gm/50 ml (Pmx)) 50 ml @ 100 mls/hr Q24H IVPB Last administered on 11/06/16 00:28; Admin Dose 100 MLS/HR; Start 11/04/16 at 21:00 Morphine Sulfate (morphine) 1 mg Q4H PRN IV MODERATE PAIN LEVEL 4-6; Start at 16:30 Morphine Sulfate (morphine) 2 mg Q4H PRN IV PAIN LEVEL 6-10 Last administered on 11/03/16 17:56; Admin Dose 2 MG; Start 11/03/16 at 16:30 Dextrose (D50w Syringe) ONCE PRN IV POC BLOOD GLUCOSE <250 MG/DL; Start at 16:30 Dextrose ONCE PRN IV POC BLOOD GLUCOSE <250 MG/DL; Start 11/03/16 at 16:30 Sodium Bicarbonate/ Dextrose (Na Bicarb/D5W) 1,100 ml @ 75 mls/hr [id number] IV Last administered on 11/05/16 18:30; Admin Dose 75 MLS/HR; Start 11/04/16 at 12: 00 SASCHA ORTEGA MD Nov 06, 2016 09:26
[2016-11-06 11:13] LABS: LYMPHOCYTES # 0.3 10^3/ul (0.8-2.9); TOXIC GRANULATION 2+
[2016-11-06 11:14] LABS: TARGET CELLS OCCASIONAL
[2016-11-06 11:15] LABS: PLATELET ESTIMATE PLT APPEAR DECREASED
[2016-11-06] MEDS: SODIUM BICARBONATE (IV ADD) 100 MEQ in DEXTROSE 5% 1,000 ML IV SCH (14:25)
[2016-11-06] MEDS: ALBUTEROL 0.083% (NEB) 2.5 MG/3 ML AMP NEB PRN ×2 (16:59→23:56)
[2016-11-06] MEDS: QUETIAPINE 25 MG TAB PO SCH (21:00)
[2016-11-06 21:14] VITALS: BP 153/79; RESP 18
[2016-11-06] MEDS: morphine 2 MG INJ IV PRN (23:02)
[2016-11-07] MEDS: SODIUM BICARBONATE (IV ADD) 100 MEQ in DEXTROSE 5% 1,000 ML IV SCH ×2 (05:38→21:36)
[2016-11-07 07:51] VITALS: BP 151/72; RESP 15
[2016-11-07] MEDS: FAMOTIDINE 20 MG INJ IV SCH (08:35)
[2016-11-07] MEDS: CITALOPRAM 20 MG TAB PO SCH (08:40)
--- NOTE | 2016-11-07 09:11 | PN ---
Date/Time of Note Date/Time of Note DATE: 11/07/16 TIME: 09:10 Assessment/Plan VTE Prophylaxis VTE Prophylaxis Intervention: heparin Lines/Catheters IV Catheter Type (from Nrsg): Saline Lock Urinary Cath still in place: Yes Reason Cath still needed: skin wounds contaminated by urine Assessment/Plan Assessment/Plan Staph bacteremia ESBL UTI AMS severe dementia Chronic anemia Very poor prognosis DNR Cont current therapy No aggressive measures consider GIP in am Subjective 24 Hr Interval Summary Subjective hx not possible: pt non-verbal Exam/Review of Systems Vital Signs Vitals Vital Signs Date Time Temp Pulse Resp B/P Pulse Ox O2 Delivery O2 Flow Rate FiO2 11/07/16 07:51 98.4 93 15 151/72 95 11/07/16 00:07 Simple Mask 8.0 11/04/16 19:57 60 Intake and Output 11/06/16 11/06/16 11/07/16 15:00 23:00 07:00 Intake Total 50 ml 1000 ml Output Total 750 ml 1500 ml Balance -700 ml -500 ml Exam Neck: non-tender, supple Respiratory: clear to auscultation Cardiovascular: regular rate and rhythm Gastrointestinal: bowel sounds, non-tender, soft Results Result Diagram: 11/06/16 0436 11/06/16 0500 Medications Medications Current Medications Ondansetron HCl (Zofran Inj) 4 mg Q6H PRN IV NAUSEA AND/OR VOMITING Last administered on 11/03/16 17:57; Admin Dose 4 MG; Start 11/03/16 at 14:30 Acetaminophen (Tylenol Tab) 650 mg Q6H PRN PO PAIN LEVEL 1-3 OR FEVER; Start at 14:30 Docusate Sodium (Colace) 100 mg Q12H PRN PO CONSTIPATION; Start 11/03/16 at 14: 30 Magnesium Hydroxide (Milk Of Mag) 30 ml DAILY PRN PO CONSTIPATION; Start at 14:30 Bisacodyl (Dulcolax Supp) 10 mg DAILY PRN [place] CONSTIPATION; Start 11/03/16 at 14 :30 Famotidine (Pepcid Iv) 20 mg DAILY IV Last administered on 11/07/16 08:35; Admin Dose 20 MG; Start 11/03/16 at 15:00 Citalopram Hydrobromide (Celexa) 10 mg DAILY PO ; Start 11/04/16 at 09:00 Quetiapine Fumarate 25 mg 25 mg QHS PO ; Start 11/03/16 at 21:00 Cefepime HCl (Maxipime 2gm/50 ml (Pmx)) 50 ml @ 100 mls/hr Q24H IVPB Last administered on 11/06/16 21:07; Admin Dose 100 MLS/HR; Start 11/04/16 at 21:00 Morphine Sulfate (morphine) 1 mg Q4H PRN IV MODERATE PAIN LEVEL 4-6 Last administered on 11/06/16 23:02; Admin Dose 1 MG; Start 11/03/16 at 16:30 Morphine Sulfate (morphine) 2 mg Q4H PRN IV PAIN LEVEL 6-10 Last administered on 11/03/16 17:56; Admin Dose 2 MG; Start 11/03/16 at 16:30 Dextrose (D50w Syringe) ONCE PRN IV POC BLOOD GLUCOSE <250 MG/DL; Start at 16:30 Dextrose ONCE PRN IV POC BLOOD GLUCOSE <250 MG/DL; Start 11/03/16 at 16:30 Sodium Bicarbonate/ Dextrose (Na Bicarb/D5W) 1,100 ml @ 75 mls/hr [id number] IV Last administered on 11/07/16 05:38; Admin Dose 75 MLS/HR; Start 11/04/16 at 12: 00 SASCHA ORTEGA MD Nov 07, 2016 09:11
[2016-11-07] MEDS: ALBUTEROL 0.083% (NEB) 2.5 MG/3 ML AMP NEB PRN ×2 (10:58→20:55)
[2016-11-07] MEDS: CEFEPIME 2GM/50 ML (PMX) 50 ML IVPB SCH (20:40)
[2016-11-07] MEDS: QUETIAPINE 25 MG TAB PO SCH (20:46)
[2016-11-07] MEDS: morphine 2 MG INJ IV PRN (21:48)
[2016-11-07 23:04] VITALS: BP 157/74; RESP 18
[2016-11-08 08:02] VITALS: BP 160/77; RESP 19
[2016-11-08] MEDS: SODIUM BICARBONATE (IV ADD) 100 MEQ in DEXTROSE 5% 1,000 ML IV SCH ×2 (08:59→12:03)
[2016-11-08] MEDS: FAMOTIDINE 20 MG INJ IV SCH (08:59)
[2016-11-08] MEDS: CITALOPRAM 20 MG TAB PO SCH (09:00)
[2016-11-08 11:37] LABS: ADD SCAN DIFF NO
[2016-11-08 11:45] LABS: ABNORMAL IP MESSAGE 1; BASOPHILS % 0.5 % (0.0-2.0); EOSINOPHILS % 0.2 % (0.0-7.0); HEMATOCRIT 27.5 % (37.0-47.0); HEMOGLOBIN 9.1 g/dl (12.0-16.0); LYMPHOCYTES # 0.4 10^3/ul (0.8-2.9); LYMPHOCYTES % 5.9 % (15.0-51.0); MEAN CORPUSCULAR HEMOGLOBIN 30.3 pg (29.0-33.0); MEAN CORPUSCULAR HGB CONC 33.1 g/dl (32.0-37.0); MEAN CORPUSCULAR VOLUME 91.7 fl (82.0-101.0); MEAN PLATELET VOLUME 11.6 fl (7.4-10.4); MONOCYTE # 0.2 10^3/ul (0.3-0.9); NEUTROPHIL # 5.3 10^3/ul (1.6-7.5); NEUTROPHILS % 88.7 % (39.0-77.0); PLATELET COUNT 99 10^3/UL (140-415); RED CELL DISTRIBUTION WIDTH 16.1 % (11.5-14.5)
[2016-11-08 12:07] LABS: CALCIUM 8.2 mg/dl (8.4-10.2); CREATININE 1.74 mg/dl (0.44-1.00)
[2016-11-08 12:30] LABS: POTASSIUM 2.8 mmol/L (3.5-5.1)
[2016-11-08] MEDS ORDERED: POTASSIUM CHLORIDE 250 ML IVPB ONE (13:00)
[2016-11-08] MEDS: D5W-0.45 NACL + KCL 20 MEQ 1,000 ML IV SCH (13:10)
--- NOTE | 2016-11-08 13:45 | PN ---
Date/Time of Note Date/Time of Note DATE: 11/08/16 TIME: 13:24 Assessment/Plan VTE Prophylaxis VTE Prophylaxis Intervention: SCD's Lines/Catheters IV Catheter Type (from Nrs): Peripheral IV Urinary Cath still in place: Yes Reason Cath still needed: other (indicate) (ARF, monitoring UOP) Assessment/Plan Assessment/Plan 89-year-old female with: 1. Altered mental status episodes of fevers, all consistent with sepsis. WBC down and bandemia resolved. More awake but still minimally verbal Blood cx with staph and Urine cx with ESBL Ecoli, repeat Blood cx and continue Cefepime and Vanco based on sensitivities Renal function improving Updated family, for now continue supportive care and reassess in 48 hrs since patient has improved some over the weekend. DNR on modified comfort measures kind of. No pressors. No BiPAP 2. Acute renal failure, on CKD, UOP picked up and renal function improving and now with Hypokalemia Changing IVF to D5NS with Kcl Replete K Olivo catheter in place. 3. Dementia already was on hospice. Apparently she is a moderate to severe bed bound but still interacting with family. Currently off hospice. Patient likely to sign back on hospice at discharge 4. Hypertension. All medications have been discontinued so far given the fact that she is septic and her blood pressure stable so far. 5. 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 6. Chronic anemia, Hb stable up to 9.1 today S/p mild DIC. Prophylaxis: Sequential compression devices to lower extremity for DVT prophylaxis and Pepcid for GI prophylaxis. Disposition. DNR, modified comfort measures and continue supportive care and treatment for underlying bacteremia/sepsis and acute renal failure. Fair prognosis as of today, continue current supportive care. Subjective 24 Hr Interval Summary Free Text/Dictation Patient's renal function improved by this AM and UOP increased over the weekend Repleting low K and changing IVF to NS On Appropriate abx for Staph bacteremia and ESBL UTI Afebrile and CXR still not improved, on Face mask Exam/Review of Systems Vital Signs Vitals Vital Signs Date Time Temp Pulse Resp B/P Pulse Ox O2 Delivery O2 Flow Rate FiO2 11/08/16 08:02 97.6 92 19 160/77 95 6/5/17 00:36 8.0 11/07/16 20:56 Simple Mask 11/04/16 19:57 60 Intake and Output 11/07/16 11/07/16 11/08/16 15:00 23:00 07:00 Intake Total 1150 ml 525 ml Output Total 1200 ml 1450 ml Balance -50 ml -925 ml Exam Constitutional: alert, frail, other (more verbal ) Respiratory: diminished breath sounds (bilaterally ) Cardiovascular: nl pulses, regular rate and rhythm Gastrointestinal: soft Musculoskeletal: nl extremities to inspection, other (no edema, clubbing or cyanosis ) Extremities: normal pulses Neurological: OPERATIONS CONTROLLER II-XII intact, confused, lethargic, other (bed bound at baseline ) Results Result Diagram: 11/08/16 1123 11/08/16 1123 Results 24 hrs Laboratory Tests Test 11/08/16 11:23 White Blood Count 6.0 # Red Blood Count 3.00 L Hemoglobin 9.1 L Hematocrit 27.5 #L Mean Corpuscular Volume 91.7 Mean Corpuscular Hemoglobin 30.3 Mean Corpuscular Hemoglobin Concent 33.1 Red Cell Distribution Width 16.1 H Platelet Count 99 #L Mean Platelet Volume 11.6 H Neutrophils % 88.7 H Lymphocytes % 5.9 L Monocytes % 4.0 Eosinophils % 0.2 Basophils % 0.5 Nucleated Red Blood Cells % 0.0 Neutrophils # 5.3 Lymphocytes # 0.4 L Monocytes # 0.2 L Eosinophils # 0.0 Basophils # 0.0 Nucleated Red Blood Cells # 0.0 Sodium Level 146 H Potassium Level 2.8 *L Chloride Level 93 L Carbon Dioxide Level 40 H Anion Gap 16 Blood Urea Nitrogen 70 H Creatinine 1.74 H Glucose Level 154 Calcium Level 8.2 L Medications Medications Current Medications Ondansetron HCl (Zofran Inj) 4 mg Q6H PRN IV NAUSEA AND/OR VOMITING Last administered on 11/03/16t 17:57; Admin Dose 4 MG; Start 11/03/16 at 14:30 Acetaminophen (Tylenol Tab) 650 mg Q6H PRN PO PAIN LEVEL 1-3 OR FEVER; Start at 14:30 Docusate Sodium (Colace) 100 mg Q12H PRN PO CONSTIPATION; Start 11/03/16 at 14: 30 Magnesium Hydroxide (Milk Of Mag) 30 ml DAILY PRN PO CONSTIPATION; Start at 14:30 Bisacodyl (Dulcolax Supp) 10 mg DAILY PRN [place] CONSTIPATION; Start 11/03/16 at 14 :30 Famotidine (Pepcid Iv) 20 mg DAILY IV Last administered on 11/08/16 08:59; Admin Dose 20 MG; Start 11/03/16 at 15:00 Citalopram Hydrobromide (Celexa) 10 mg DAILY PO ; Start 11/04/16 at 09:00 Quetiapine Fumarate 25 mg 25 mg QHS PO ; Start 11/03/16 at 21:00 Cefepime HCl (Maxipime 2gm/50 ml (Pmx)) 50 ml @ 100 mls/hr Q24H IVPB Last administered on 11/07/16 20:40; Admin Dose 100 MLS/HR; Start 11/04/16 at 21:00 Morphine Sulfate (morphine) 1 mg Q4H PRN IV MODERATE PAIN LEVEL 4-6 Last administered on 11/07/16 21:48; Admin Dose 1 MG; Start 11/03/16 at 16:30 Morphine Sulfate (morphine) 2 mg Q4H PRN IV PAIN LEVEL 6-10 Last administered on 11/03/16 17:56; Admin Dose 2 MG; Start 11/03/16 at 16:30 Dextrose (D50w Syringe) ONCE PRN IV POC BLOOD GLUCOSE <250 MG/DL; Start at 16:30 Dextrose ONCE PRN IV POC BLOOD GLUCOSE <250 MG/DL; Start 11/03/16 at 16:30 Potassium Chloride/Dextrose/ Sod Cl 1,000 ml @ 75 mls/hr [id number] IV Last administered on 11/08/16 13:10; Admin Dose 75 MLS/HR; Start 11/08/16 at 13:00 Potassium Chloride (KCl 40 MEQ/250 ML NS) 250 ml @ 62.5 mls/hr ONCE ONCE IVPB ; Start 11/08/16 at 13:00; Stop 11/08/16 at 16:59 ИРИНА GONZALEZ Nov 08, 2016 13:34
--- NOTE | 2016-11-08 14:53 | RADRPT ---
PROCEDURE: XR Chest. CLINICAL INDICATION: rule out pulmonary edema TECHNIQUE: Single frontal view of the chest was obtained. COMPARISON: Chest x-ray from 06/25/2015 FINDINGS: There is mild cardiomegaly and mild pulmonary vascular congestion. There are patchy and confluent opacities in the right upper to mid lung zone and left lung base, mj picious for multifocal pneumonia. A left pleural effusion cannot be entirely excluded. The aortic arch is calcified. IMPRESSION: Patchy and confluent opacities in the right upper to mid lung zone and left lung base suspicious for a multifocal pneumonia. Mild cardiomegaly and mild pulmonary vascular congestion. Aortic atherosclerosis. RPTAT: EE Physician Yamil Date Time Electronically viewed and signed by Physician Yamil on 11/08/2016 14:53 /
[2016-11-08 19:43] VITALS: BP 187/94; RESP 20
[2016-11-08] MEDS: QUETIAPINE 25 MG TAB PO SCH (21:00)
[2016-11-08] MEDS: CEFEPIME 2GM/50 ML (PMX) 50 ML IVPB SCH (21:02)
[2016-11-08] MEDS: morphine 2 MG INJ IV PRN (22:26)
[2016-11-08 23:00] VITALS: BP 139/66; PULSE 96
[2016-11-09] MEDS: D5W-0.45 NACL + KCL 20 MEQ 1,000 ML IV SCH ×3 (02:20→22:36)
[2016-11-09 06:08] LABS: ADD SCAN DIFF NO
[2016-11-09 06:14] LABS: ABNORMAL IP MESSAGE 1; BASOPHILS % 0.3 % (0.0-2.0); EOSINOPHILS % 0.1 % (0.0-7.0); HEMATOCRIT 28.5 % (37.0-47.0); HEMOGLOBIN 9.4 g/dl (12.0-16.0); LYMPHOCYTES # 0.5 10^3/ul (0.8-2.9); LYMPHOCYTES % 6.6 % (15.0-51.0); MEAN CORPUSCULAR HEMOGLOBIN 30.3 pg (29.0-33.0); MEAN CORPUSCULAR VOLUME 91.9 fl (82.0-101.0); MEAN PLATELET VOLUME 11.2 fl (7.4-10.4); MONOCYTE # 0.3 10^3/ul (0.3-0.9); NEUTROPHIL # 6.4 10^3/ul (1.6-7.5); NEUTROPHILS % 88.5 % (39.0-77.0); NUCLEATED RED BLOOD CELLS% 0.3 /100WBC (0.0-0.0); PLATELET COUNT 91 10^3/UL (140-415); RED CELL DISTRIBUTION WIDTH 16.1 % (11.5-14.5); WHITE BLOOD COUNT 7.3 10^3/ul (4.8-10.8)
[2016-11-09 06:48] LABS: CALCIUM 8.4 mg/dl (8.4-10.2); CREATININE 1.84 mg/dl (0.44-1.00)
[2016-11-09 07:15] LABS: POTASSIUM 2.7 mmol/L (3.5-5.1)
[2016-11-09] MEDS ORDERED: POTASSIUM CHLORIDE (SR) 20 MEQ TAB PO SCH (07:30)
[2016-11-09 07:49] LABS: MAGNESIUM 1.6 mg/dl (1.7-2.5)
[2016-11-09 08:01] VITALS: BP 166/90; RESP 18
[2016-11-09] MEDS ORDERED: POTASSIUM CHLORIDE 250 ML IVPB ONE (08:30)
[2016-11-09] MEDS: CITALOPRAM 20 MG TAB PO SCH (09:00)
[2016-11-09] MEDS: FAMOTIDINE 20 MG INJ IV SCH (09:36)
[2016-11-09] MEDS ORDERED: MAGNESIUM SULFATE 2 GM/50 ML 50 ML IVPB ONE (10:00)
[2016-11-09 11:00] VITALS: BP 145/80
[2016-11-09] MEDS ORDERED: POTASSIUM CHLORIDE 30 MEQ in SOD CHLORIDE 0.9% 150 ML IVPB ONE (11:00)
[2016-11-09] MEDS ORDERED: POTASSIUM PHOSPHATE 30 MM in SOD CHLORIDE 0.9% 250 ML IVPB ONE (11:00)
[2016-11-09] MEDS ORDERED: hydrALAzine 20 MG INJ IV PRN (12:00)
--- NOTE | 2016-11-09 12:04 | PN ---
Date/Time of Note Date/Time of Note DATE: 11/09/16 TIME: 11:56 Assessment/Plan VTE Prophylaxis VTE Prophylaxis Intervention: SCD's Lines/Catheters IV Catheter Type (from Nrs): Peripheral IV Urinary Cath still in place: Yes Reason Cath still needed: other (indicate) (monitor UOP ) Assessment/Plan Assessment/Plan 89-year-old female with: 1. Altered mental status episodes of fevers, all consistent with sepsis. More awake but still minimally verbal and not oriented. WBC back to normal Blood cx with staph and Urine cx with ESBL Ecoli, repeat Blood cx pending and continue Cefepime and Vanco based on sensitivities Renal function improved back to baseline of 1.7 to 2.0 Updated family, for now continue supportive care and reassess in 24 hrs since patient has improved some over the weekend. DNR on modified comfort measures kind of. No pressors. No BiPAP 2. Acute renal failure, on CKD, UOP picked up and renal function seems to be back to baseline. Good UOP. Replete K, phos and Mag Olivo catheter in place. 3. Dementia already was on hospice. Apparently she is a moderate to severe bed bound but still interacting with family. Currently off hospice. Patient likely to sign back on hospice at discharge 4. Hypertension. Will resume meds slowly as BP up now and renal function better. 5. 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 6. Chronic anemia, Hb stable up to 9.4 today S/p mild DIC. Prophylaxis: Sequential compression devices to lower extremity for DVT prophylaxis and Pepcid for GI prophylaxis. Disposition. DNR, modified comfort measures and continue supportive care and treatment for underlying bacteremia/sepsis and acute renal failure. Fair prognosis as of today, continue current supportive care. Subjective 24 Hr Interval Summary Free Text/Dictation Patient's renal function back to her baseline with good UOP More awake and interactive Speech evaluation today Exam/Review of Systems Vital Signs Vitals Vital Signs Date Time Temp Pulse Resp B/P Pulse Ox O2 Delivery O2 Flow Rate FiO2 11/09/16 08:01 97.0 98 18 166/90 98 11/09/16 00:29 8.0 11/08/16 20:00 Simple Mask Intake and Output 11/08/16 11/08/16 11/09/16 15:00 23:00 07:00 Intake Total 650 ml 300 ml 860 ml Output Total 1500 ml 1000 ml Balance 650 ml -1200 ml -140 ml Exam Constitutional: alert, frail, other (not oriented and minimally verbal ) Respiratory: diminished breath sounds (bilaterally ), normal air movement Cardiovascular: nl pulses, regular rate and rhythm Gastrointestinal: non-tender, soft Musculoskeletal: muscle tone (poor ) Extremities: normal pulses, other (no edema, clubbing or cyanosis ) Neurological: FACILITIES ENGINEER II-XII intact, confused, lethargic Results Result Diagram: 11/09/16 0541 11/09/16 0541 Results 24 hrs Laboratory Tests Test 11/09/16 05:41 White Blood Count 7.3 # Red Blood Count 3.10 L Hemoglobin 9.4 L Hematocrit 28.5 L Mean Corpuscular Volume 91.9 Mean Corpuscular Hemoglobin 30.3 Mean Corpuscular Hemoglobin Concent 33.0 Red Cell Distribution Width 16.1 H Platelet Count 91 L Mean Platelet Volume 11.2 H Neutrophils % 88.5 H Lymphocytes % 6.6 L Monocytes % 4.0 Eosinophils % 0.1 Basophils % 0.3 Nucleated Red Blood Cells % 0.3 H Neutrophils # 6.4 Lymphocytes # 0.5 L Monocytes # 0.3 Eosinophils # 0.0 Basophils # 0.0 Nucleated Red Blood Cells # 0.0 Sodium Level 148 H Potassium Level 2.7 *L Chloride Level 97 Carbon Dioxide Level 40 H Anion Gap 14 Blood Urea Nitrogen 61 H Creatinine 1.84 H Glucose Level 158 Calcium Level 8.4 Phosphorus Level 2.0 L Magnesium Level 1.6 L Medications Medications Current Medications Ondansetron HCl (Zofran Inj) 4 mg Q6H PRN IV NAUSEA AND/OR VOMITING Last administered on 11/03/16t 17:57; Admin Dose 4 MG; Start 11/03/16 at 14:30 Acetaminophen (Tylenol Tab) 650 mg Q6H PRN PO PAIN LEVEL 1-3 OR FEVER; Start at 14:30 Docusate Sodium (Colace) 100 mg Q12H PRN PO CONSTIPATION; Start 11/03/16 at 14: 30 Magnesium Hydroxide (Milk Of Mag) 30 ml DAILY PRN PO CONSTIPATION; Start at 14:30 Bisacodyl (Dulcolax Supp) 10 mg DAILY PRN [place] CONSTIPATION; Start 11/03/16 at 14 :30 Famotidine (Pepcid Iv) 20 mg DAILY IV Last administered on 11/09/16 09:36; Admin Dose 20 MG; Start 11/03/16 at 15:00 Citalopram Hydrobromide (Celexa) 10 mg DAILY PO ; Start 11/04/16 at 09:00 Quetiapine Fumarate 25 mg 25 mg QHS PO ; Start 11/03/16 at 21:00 Cefepime HCl (Maxipime 2gm/50 ml (Pmx)) 50 ml @ 100 mls/hr Q24H IVPB Last administered on 11/08/16 21:02; Admin Dose 100 MLS/HR; Start 11/04/16 at 21:00 Morphine Sulfate (morphine) 1 mg Q4H PRN IV MODERATE PAIN LEVEL 4-6 Last administered on 11/08/16 22:26; Admin Dose 1 MG; Start 11/03/16 at 16:30 Morphine Sulfate (morphine) 2 mg Q4H PRN IV PAIN LEVEL 6-10 Last administered on 11/03/16 17:56; Admin Dose 2 MG; Start 11/03/16 at 16:30 Dextrose (D50w Syringe) ONCE PRN IV POC BLOOD GLUCOSE <250 MG/DL; Start at 16:30 Dextrose ONCE PRN IV POC BLOOD GLUCOSE <250 MG/DL; Start 11/03/16 at 16:30 Potassium Chloride/Dextrose/ Sod Cl 1,000 ml @ 75 mls/hr [id number] IV Last administered on 11/09/16 09:37; Admin Dose 75 MLS/HR; Start 11/08/16 at 13:00 Potassium Chloride (KCl 40 MEQ/250 ML NS) 250 ml @ 62.5 mls/hr ONCE ONCE IVPB Last administered on 11/09/16 09:36; Admin Dose 62.5 MLS/HR; Start 11/09/16 at 08:30; Stop 11/09/16 at 12:29 Potassium Chloride 40 meq 40 meq ONCE PO ; Start 11/09/16 at 07:30; Stop 11/09/16 at 23:00 Potassium Phosphate 30 mm/ Sodium Chloride 260 ml @ 65 mls/hr ONCE ONCE IVPB ; Start 11/09/16 at 11:00; Stop 11/09/16 at 14:59 Magnesium Sulfate 50 ml @ 25 mls/hr ONCE ONCE IVPB ; Start 11/09/16 at 10:00; Stop 11/09/16 at 11:59 Vancomycin HCl (Vancocin) 250 ml @ 125 mls/hr Q72H IVPB ; Start 11/09/16 at 18: 00 ИРИНА GONZALEZ Nov 09, 2016 12:04 ИРИНА GONZALEZ Nov 09, 2016 12:04
[2016-11-09 14:37] VITALS: BP 132/75
[2016-11-09] MEDS: AMLODIPINE 5 MG TAB PO SCH (14:37)
[2016-11-09] MEDS ORDERED: VANCOMYCIN 1 GM in NS 250 ML IVPB SCH (18:00)
[2016-11-09 19:33] VITALS: BP 138/73; RESP 18
[2016-11-09] MEDS: QUETIAPINE 25 MG TAB PO SCH (20:56)
[2016-11-09] MEDS: CEFEPIME 2GM/50 ML (PMX) 50 ML IVPB SCH (20:56)
[2016-11-09] MEDS: morphine 2 MG INJ IV PRN (22:30)
[2016-11-10 05:51] LABS: ADD SCAN DIFF NO
[2016-11-10 05:57] LABS: ABNORMAL IP MESSAGE 1; BASOPHILS % 0.1 % (0.0-2.0); EOSINOPHILS # 0.1 10^3/ul (0.0-0.5); EOSINOPHILS % 0.8 % (0.0-7.0); HEMATOCRIT 29.6 % (37.0-47.0); HEMOGLOBIN 9.4 g/dl (12.0-16.0); LYMPHOCYTES # 0.8 10^3/ul (0.8-2.9); LYMPHOCYTES % 9.4 % (15.0-51.0); MEAN CORPUSCULAR HEMOGLOBIN 29.8 pg (29.0-33.0); MEAN CORPUSCULAR HGB CONC 31.8 g/dl (32.0-37.0); MEAN PLATELET VOLUME 12.4 fl (7.4-10.4); MONOCYTE # 0.4 10^3/ul (0.3-0.9); MONOCYTES % 4.1 % (0.0-11.0); NEUTROPHIL # 7.2 10^3/ul (1.6-7.5); NEUTROPHILS % 84.7 % (39.0-77.0); NUCLEATED RED BLOOD CELLS% 0.2 /100WBC (0.0-0.0); PLATELET COUNT 56 10^3/UL (140-415); RED BLOOD COUNT 3.15 10^6/ul (4.20-5.40); RED CELL DISTRIBUTION WIDTH 16.9 % (11.5-14.5); WHITE BLOOD COUNT 8.5 10^3/ul (4.8-10.8)
[2016-11-10 06:21] LABS: MAGNESIUM 1.9 mg/dl (1.7-2.5); PHOSPHORUS 3.5 mg/dl (2.5-4.9)
[2016-11-10 06:24] LABS: CALCIUM 8.4 mg/dl (8.4-10.2); CREATININE 1.84 mg/dl (0.44-1.00); POTASSIUM 3.6 mmol/L (3.5-5.1)
[2016-11-10 08:00] VITALS: BP 132/71; RESP 18
[2016-11-10] MEDS: FAMOTIDINE 20 MG INJ IV SCH (09:57)
[2016-11-10] MEDS: AMLODIPINE 5 MG TAB PO SCH (09:58)
[2016-11-10] MEDS: CITALOPRAM 20 MG TAB PO SCH (09:58)
[2016-11-10] MEDS: D5W + KCL 20 MEQ 1,000 ML IV SCH (12:00)
--- NOTE | 2016-11-10 12:45 | PN ---
Date/Time of Note Date/Time of Note DATE: 11/10/16 TIME: 12:19 Assessment/Plan VTE Prophylaxis VTE Prophylaxis Intervention: SCD's Lines/Catheters IV Catheter Type (from Nrs): Peripheral IV Urinary Cath still in place: Yes Reason Cath still needed: other (indicate) (monitor UOP ) Assessment/Plan Assessment/Plan 89-year-old female with: 1. Altered mental status episodes of fevers, all consistent with sepsis. More awake but a little more verbal and not oriented. WBC back to normal Blood cx with staph and Urine cx with ESBL Ecoli, repeat Blood cx pending and continue Cefepime and Vanco based on sensitivities Renal function improved back to baseline of 1.7 to 2.0 Updated family, for now continue supportive care and reassess in 48 hrs again regarding discharge planning Home back on hospice likely at least for her Dementia DNR on modified comfort measures kind of. No pressors. No BiPAP 2. Acute renal failure, on CKD, UOP picked up and renal function seems to be back to baseline. Good UOP. Hypernatremia, changing IVF to D5W Olivo catheter in place. 3. Dementia already was on hospice. Apparently she is a moderate to severe bed bound but still interacting with family. Currently off hospice per family wishes. Patient likely to sign back on hospice at discharge 4. Hypertension. back on Norvasc. 5. 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 6. Chronic anemia, Hb stable up to 9.4 today S/p mild DIC. Prophylaxis: Sequential compression devices to lower extremity for DVT prophylaxis and Pepcid for GI prophylaxis. Disposition. DNR, modified comfort measures and continue supportive care and treatment for underlying bacteremia/sepsis and acute renal failure. Fair prognosis as of now, likely to go back home on hospice for her dementia at least. Subjective 24 Hr Interval Summary Free Text/Dictation Patient awake and seems alert this AM, answering simple questions and per son at baseline that seems to be close to her baseline Tolerating puree so far with thickened liquids Afebrile, labs improved and renal function back to baseline Exam/Review of Systems Vital Signs Vitals Vital Signs Date Time Temp Pulse Resp B/P Pulse Ox O2 Delivery O2 Flow Rate FiO2 11/10/16 09:00 Nasal Cannula 4.0 11/09/16 19:33 98.3 106 18 138/73 93 Intake and Output 11/09/16 11/09/16 11/10/16 15:00 23:00 07:00 Intake Total 390 ml 1510 ml 550 ml Output Total 1050 ml 600 ml Balance 390 ml 460 ml -50 ml Exam Constitutional: alert, oriented (x1), other (minimally verbal ) Respiratory: diminished breath sounds (bases ), normal air movement Cardiovascular: nl pulses, regular rate and rhythm Gastrointestinal: non-tender, soft Musculoskeletal: other (poor muscle tone ) Extremities: normal pulses, other (contracted extremities ) Neurological: URBAN SOCIOLOGIST II-XII intact, confused, lethargic (but better) Results Result Diagram: 11/10/1644911/10/16 045 Results 24 hrs Laboratory Tests Test 11/10/16 04:50 White Blood Count 8.5 Red Blood Count 3.15 L Hemoglobin 9.4 L Hematocrit 29.6 L Mean Corpuscular Volume 94.0 Mean Corpuscular Hemoglobin 29.8 Mean Corpuscular Hemoglobin Concent 31.8 L Red Cell Distribution Width 16.9 H Platelet Count 56 #L Mean Platelet Volume 12.4 H Neutrophils % 84.7 H Lymphocytes % 9.4 L Monocytes % 4.1 Eosinophils % 0.8 Basophils % 0.1 Nucleated Red Blood Cells % 0.2 H Neutrophils # 7.2 Lymphocytes # 0.8 Monocytes # 0.4 Eosinophils # 0.1 Basophils # 0.0 Nucleated Red Blood Cells # 0.0 Sodium Level 150 H Potassium Level 3.6 Chloride Level 103 Carbon Dioxide Level 34 H Anion Gap 17 H Blood Urea Nitrogen 61 H Creatinine 1.84 H Glucose Level 150 Calcium Level 8.4 Phosphorus Level 3.5 Magnesium Level 1.9 Medications Medications Current Medications Ondansetron HCl (Zofran Inj) 4 mg Q6H PRN IV NAUSEA AND/OR VOMITING Last administered on 11/03/16t 17:57; Admin Dose 4 MG; Start 11/03/16 at 14:30 Acetaminophen (Tylenol Tab) 650 mg Q6H PRN PO PAIN LEVEL 1-3 OR FEVER; Start at 14:30 Docusate Sodium (Colace) 100 mg Q12H PRN PO CONSTIPATION; Start 11/03/16 at 14: 30 Magnesium Hydroxide (Milk Of Mag) 30 ml DAILY PRN PO CONSTIPATION; Start at 14:30 Bisacodyl (Dulcolax Supp) 10 mg DAILY PRN [place] CONSTIPATION; Start 11/03/16 at 14 :30 Famotidine (Pepcid Iv) 20 mg DAILY IV Last administered on 11/10/16 09:57; Admin Dose 20 MG; Start 11/03/16 at 15:00 Citalopram Hydrobromide (Celexa) 10 mg DAILY PO Last administered on 11/10/16 09:58; Admin Dose 10 MG; Start 11/04/16 at 09:00 Quetiapine Fumarate 25 mg 25 mg QHS PO Last administered on 11/09/16 20:56; Admin Dose 25 MG; Start 11/03/16 at 21:00 Cefepime HCl (Maxipime 2gm/50 ml (Pmx)) 50 ml @ 100 mls/hr Q24H IVPB Last administered on 11/09/16 20:56; Admin Dose 100 MLS/HR; Start 11/04/16 at 21:00 Morphine Sulfate (morphine) 1 mg Q4H PRN IV MODERATE PAIN LEVEL 4-6 Last administered on 11/09/16 22:30; Admin Dose 1 MG; Start 11/03/16 at 16:30 Morphine Sulfate (morphine) 2 mg Q4H PRN IV PAIN LEVEL 6-10 Last administered on 11/03/16 17:56; Admin Dose 2 MG; Start 11/03/16 at 16:30 Dextrose (D50w Syringe) ONCE PRN IV POC BLOOD GLUCOSE <250 MG/DL; Start at 16:30 Dextrose ONCE PRN IV POC BLOOD GLUCOSE <250 MG/DL; Start 11/03/16 at 16:30 Vancomycin HCl (Vancocin) 250 ml @ 125 mls/hr Q72H IVPB Last administered on 18:11; Admin Dose 125 MLS/HR; Start 11/09/16 at 18:00 Amlodipine Besylate (Norvasc) 5 mg DAILY PO Last administered on 11/10/16 09:58 ; Admin Dose 5 MG; Start 11/09/16 at 12:00 Hydralazine HCl 10 mg 10 mg Q8H PRN IV ELEVATED BLOOD PRESSURE; Start 11/09/16 at 12:00 Potassium Chloride/Dextrose (D5W + KCl 20 Meq) 1,000 ml @ 80 mls/hr [id number] IV Last administered on 11/10/16 12:00; Admin Dose 80 MLS/HR; Start 11/10/16 at 11 :30 ИРИНА GONZALEZ Nov 10, 2016 12:36
[2016-11-10 20:49] VITALS: BP 155/72; RESP 16
[2016-11-10] MEDS: QUETIAPINE 25 MG TAB PO SCH (22:47)
[2016-11-10] MEDS: CEFEPIME 2GM/50 ML (PMX) 50 ML IVPB SCH (22:47)
--- NOTE | 2016-11-11 02:33 | RADRPT ---
PROCEDURE: XR Chest. CLINICAL INDICATION: Dyspnea. TECHNIQUE: Single frontal view of the chest. COMPARISON: 06/25/2015. FINDINGS: Endotracheal intubation is removed. Cardiomegaly. Tortuous calcified thoracic aorta. New small ri ght pleural effusion and increased left pleural effusion. Right mid lung and upper lung air space d isease and left lung base air space disease, new over interval. No signs of pneumothorax are seen. The osseous structures and soft tissues are unremarkable. IMPRESSION: 1. Bilateral air space disease is new. 2. New small right pleural effusion. 3. Increased left pleural effusion. RPTAT: [facility] Physician Hollis Date Time Electronically viewed and signed by Physician Hollis on 11/11/2016 02:33 RS/
[2016-11-11 05:57] LABS: ADD SCAN DIFF NO
[2016-11-11 06:12] LABS: ABNORMAL IP MESSAGE 1; HEMATOCRIT 23.2 % (37.0-47.0); HEMOGLOBIN 7.4 g/dl (12.0-16.0); MEAN CORPUSCULAR HEMOGLOBIN 29.8 pg (29.0-33.0); MEAN CORPUSCULAR HGB CONC 31.9 g/dl (32.0-37.0); MEAN CORPUSCULAR VOLUME 93.5 fl (82.0-101.0); MEAN PLATELET VOLUME 14.3 fl (7.4-10.4); PLATELET COUNT 39 10^3/UL (140-415); RED BLOOD COUNT 2.48 10^6/ul (4.20-5.40); RED CELL DISTRIBUTION WIDTH 16.6 % (11.5-14.5); WHITE BLOOD COUNT 9.8 10^3/ul (4.8-10.8)
[2016-11-11 06:21] LABS: MAGNESIUM 1.6 mg/dl (1.7-2.5); PHOSPHORUS 3.1 mg/dl (2.5-4.9)
[2016-11-11 06:24] LABS: CALCIUM 8.5 mg/dl (8.4-10.2); CREATININE 2.06 mg/dl (0.44-1.00); POTASSIUM 3.5 mmol/L (3.5-5.1)
[2016-11-11] MEDS: D5W + KCL 20 MEQ 1,000 ML IV SCH ×3 (06:40→14:51)
[2016-11-11 08:00] VITALS: BP 118/72; RESP 18
[2016-11-11] MEDS: FAMOTIDINE 20 MG INJ IV SCH (08:41)
[2016-11-11] MEDS: CITALOPRAM 20 MG TAB PO SCH (08:41)
[2016-11-11] MEDS: AMLODIPINE 5 MG TAB PO SCH (08:41)
[2016-11-11 10:31] LABS: EOSINOPHILS # 0.1 10^3/ul (0.0-0.5); LYMPHOCYTES # 1.5 10^3/ul (0.8-2.9); MONOCYTE # 0.1 10^3/ul (0.3-0.9); PLATELET ESTIMATE PLT APPEAR DECREASED
[2016-11-11] MEDS: FUROSEMIDE 20 MG INJ IV SCH ×2 (10:32→17:17)
--- NOTE | 2016-11-11 13:41 | PN ---
Date/Time of Note Date/Time of Note DATE: 11/11/16 TIME: 13:33 Assessment/Plan VTE Prophylaxis VTE Prophylaxis Intervention: SCD's Lines/Catheters IV Catheter Type (from Nrsg): Saline Lock Urinary Cath still in place: Yes Reason Cath still needed: other (indicate) (s/p ARF ) Assessment/Plan Assessment/Plan 89-year-old female with: 1. Altered mental status episodes of fevers, all consistent with sepsis. MS better a little bit every day and getting back to baseline More awake, more verbal, but not oriented. WBC back to normal and repeat blood cx NGTD Blood cx with staph and Urine cx with ESBL Ecoli, repeat Blood cx pending and continue Cefepime and Vanco based on sensitivities Renal function improved back to baseline of 1.7 to 2.0 Updated family, for now continue supportive care and reassess in 48 hrs again regarding discharge planning Home back on hospice likely at least for her Dementia DNR on modified comfort measures kind of. No pressors. No BiPAP 2. Acute renal failure, on CKD, UOP picked up and renal function seems to be back to baseline. Starting diuresis today, decrease IVF and monitor UOP. Improving Hypernatremia, with change of IVF to D5W Olivo catheter in place. 3. Dementia already was on hospice. Apparently she is a moderate to severe bed bound but still interacting with family. Currently off hospice per family wishes. Patient likely to sign back on hospice at discharge 4. Hypertension. back on Norvasc. 5. 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 6. Chronic anemia, Hb 7.4 but likely also dilutional, Follow up in AM S/p mild DIC. Prophylaxis: Sequential compression devices to lower extremity for DVT prophylaxis and Pepcid for GI prophylaxis. Disposition. DNR, modified comfort measures and continue supportive care and treatment for underlying bacteremia/sepsis and acute renal failure. Fair prognosis as of now, likely to go back home on hospice for her dementia at least. Discussed with family will contact [facility] hospice for possible [facility]/SNF option per family request Subjective 24 Hr Interval Summary Free Text/Dictation Patient more alert this AM with family at bedside Still confused and minimal po intake but better Family do agree with re placement on hospice at discharge but want her to be "better" and stay in the hospital longer prior to discharge with hospice ... Exam/Review of Systems Vital Signs Vitals Vital Signs Date Time Temp Pulse Resp B/P Pulse Ox O2 Delivery O2 Flow Rate FiO2 11/11/16 08:00 97.8 84 18 118/72 96 11/11/16 00:19 4.0 11/10/16 22:50 Nasal Cannula Intake and Output 11/10/16 11/10/16 11/11/16 15:00 23:00 07:00 Intake Total 550 ml 862 ml 1010 ml Output Total 900 ml 500 ml Balance 550 ml -38 ml 510 ml Exam Constitutional: alert, frail, oriented (x1 to 2) Psych: confusion Respiratory: diminished breath sounds (bilaterally ) Cardiovascular: nl pulses, regular rate and rhythm Gastrointestinal: non-tender, soft Musculoskeletal: muscle tone (poor), other (bed bound ) Extremities: normal pulses, other (some anasarca ) 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, confused, lethargic Results Result Diagram: 11/11/1615 11/11/16 0515 Results 24 hrs Laboratory Tests Test 11/11/16 05:15 White Blood Count 9.8 Red Blood Count 2.48 #L Hemoglobin 7.4 #L Hematocrit 23.2 #L Mean Corpuscular Volume 93.5 Mean Corpuscular Hemoglobin 29.8 Mean Corpuscular Hemoglobin Concent 31.9 L Red Cell Distribution Width 16.6 H Platelet Count 39 #L Mean Platelet Volume 14.3 H Neutrophils % 82.0 H Band Neutrophils % 1.0 Lymphocytes % 15.0 Monocytes % 1.0 Eosinophils % 1.0 Nucleated Red Blood Cells % 1.0 H Neutrophils # 8.0 H Lymphocytes # 1.5 Monocytes # 0.1 L Eosinophils # 0.1 Platelet Estimate PLT APPEAR DECREASED Sodium Level 145 H Potassium Level 3.5 Chloride Level 105 Carbon Dioxide Level 33 H Anion Gap 11 Blood Urea Nitrogen 61 H Creatinine 2.06 H Glucose Level 113 Calcium Level 8.5 Phosphorus Level 3.1 Magnesium Level 1.6 L Medications Medications Current Medications Ondansetron HCl (Zofran Inj) 4 mg Q6H PRN IV NAUSEA AND/OR VOMITING Last administered on 11/03/16t 17:57; Admin Dose 4 MG; Start 11/03/16 at 14:30 Acetaminophen (Tylenol Tab) 650 mg Q6H PRN PO PAIN LEVEL 1-3 OR FEVER; Start at 14:30 Docusate Sodium (Colace) 100 mg Q12H PRN PO CONSTIPATION; Start 11/03/16 at 14: 30 Magnesium Hydroxide (Milk Of Mag) 30 ml DAILY PRN PO CONSTIPATION; Start at 14:30 Bisacodyl (Dulcolax Supp) 10 mg DAILY PRN [place] CONSTIPATION; Start 11/03/16 at 14 :30 Famotidine (Pepcid Iv) 20 mg DAILY IV Last administered on 11/11/16 08:41; Admin Dose 20 MG; Start 11/03/16 at 15:00 Citalopram Hydrobromide (Celexa) 10 mg DAILY PO Last administered on 11/11/16 08:41; Admin Dose 10 MG; Start 11/04/16 at 09:00 Quetiapine Fumarate 25 mg 25 mg QHS PO Last administered on 11/10/16 22:47; Admin Dose 25 MG; Start 11/03/16 at 21:00 Cefepime HCl (Maxipime 2gm/50 ml (Pmx)) 50 ml @ 100 mls/hr Q24H IVPB Last administered on 11/10/16 22:47; Admin Dose 100 MLS/HR; Start 11/04/16 at 21:00 Morphine Sulfate (morphine) 1 mg Q4H PRN IV MODERATE PAIN LEVEL 4-6 Last administered on 11/09/16 22:30; Admin Dose 1 MG; Start 11/03/16 at 16:30 Morphine Sulfate (morphine) 2 mg Q4H PRN IV PAIN LEVEL 6-10 Last administered on 11/03/16 17:56; Admin Dose 2 MG; Start 11/03/16 at 16:30 Dextrose (D50w Syringe) ONCE PRN IV POC BLOOD GLUCOSE <250 MG/DL; Start at 16:30 Dextrose (D50w Syringe) ONCE PRN IV POC BLOOD GLUCOSE <250 MG/DL; Start at 16:30 Amlodipine Besylate (Norvasc) 5 mg DAILY PO Last administered on 11/11/16 08:41 ; Admin Dose 5 MG; Start 11/09/16 at 12:00 Hydralazine HCl 10 mg 10 mg Q8H PRN IV ELEVATED BLOOD PRESSURE; Start 11/09/16 at 12:00 Potassium Chloride/Dextrose 1,000 ml @ 50 mls/hr Q20H IV Last administered on 11/11/16t 06:40; Admin Dose 80 MLS/HR; Start 11/10/16 at 11:30 Vancomycin HCl (Vancocin) 250 ml @ 125 mls/hr Q48H IVPB ; Start 11/11/16 at 18: 00 ИРИНА GONZALEZ Nov 11, 2016 13:41
[2016-11-11] MEDS: VANCOMYCIN 1 GM in NS 250 ML IVPB SCH (17:17)
[2016-11-11] MEDS: QUETIAPINE 25 MG TAB PO SCH (20:19)
[2016-11-11] MEDS: CEFEPIME 2GM/50 ML (PMX) 50 ML IVPB SCH (20:19)
[2016-11-11 20:23] VITALS: BP 138/81; RESP 18
[2016-11-12] MEDS: morphine 2 MG INJ IV PRN ×2 (02:57→11:08)
[2016-11-12] MEDS: FUROSEMIDE 20 MG INJ IV SCH (05:18)
[2016-11-12 07:45] VITALS: BP 132/64; RESP 20
[2016-11-12] MEDS: CITALOPRAM 20 MG TAB PO SCH (08:24)
[2016-11-12] MEDS: AMLODIPINE 5 MG TAB PO SCH (08:25)
[2016-11-12 10:41] LABS: ADD SCAN DIFF NO
[2016-11-12] MEDS: FAMOTIDINE 20 MG INJ IV SCH (10:41)
[2016-11-12] MEDS: D5W + KCL 20 MEQ 1,000 ML IV SCH (10:41)
[2016-11-12 10:48] LABS: ABNORMAL IP MESSAGE 1; HEMATOCRIT 20.6 % (37.0-47.0); MEAN CORPUSCULAR VOLUME 91.2 fl (82.0-101.0); RED BLOOD COUNT 2.26 10^6/ul (4.20-5.40); RED CELL DISTRIBUTION WIDTH 15.9 % (11.5-14.5); WHITE BLOOD COUNT 10.9 10^3/ul (4.8-10.8)
[2016-11-12 10:50] LABS: PLATELET COUNT 47 10^3/UL (140-415)
[2016-11-12 11:06] LABS: CALCIUM 8.2 mg/dl (8.4-10.2); CREATININE 2.3 mg/dl (0.44-1.00); POTASSIUM 3.3 mmol/L (3.5-5.1)
[2016-11-12 11:07] LABS: MAGNESIUM 1.4 mg/dl (1.7-2.5); PHOSPHORUS 3.3 mg/dl (2.5-4.9)
[2016-11-12 12:50] LABS: EOSINOPHILS # 0.2 10^3/ul (0.0-0.5); LYMPHOCYTES # 1.2 10^3/ul (0.8-2.9); MONOCYTE # 0.1 10^3/ul (0.3-0.9); NEUTROPHIL # 9.3 10^3/ul (1.6-7.5); PLATELET ESTIMATE PLT APPEAR DECREASED
[2016-11-12] MEDS ORDERED: POTASSIUM CHLORIDE 20 MEQ POWDER FOR ORAL SOLN PO ONE (13:30)
--- NOTE | 2016-11-12 13:31 | PN ---
Date/Time of Note Date/Time of Note DATE: 11/12/16 TIME: 12:51 Assessment/Plan VTE Prophylaxis VTE Prophylaxis Intervention: SCD's Lines/Catheters IV Catheter Type (from Nrsg): Saline Lock Urinary Cath still in place: Yes Reason Cath still needed: other (indicate) (Monitor UOP ) Assessment/Plan Assessment/Plan 89-year-old female with: 1. Altered mental status episodes of fevers, all consistent with sepsis. MS better a little bit every day and getting back to baseline. Blood cx with staph and Urine cx with ESBL Ecoli, More awake, more verbal, but not oriented. WBC better and repeat blood cx NGTD. Continue Cefepime and Vanco x 14 days total. Renal function improved back to baseline of 1.7 to 2.0. Will decrease Lasix to daily dosage Updated family, for now continue supportive care while awaiting placement in SNF back on hospice at least for her Dementia DNR on modified comfort measures kind of. No pressors. No BiPAP 2. Acute renal failure, on CKD, UOP picked up and renal function seems to be back to baseline. Resolved hypernatremia, with change of IVF to D5W Decreasing Lasix dosing today, at lower IVF rate of 50 cc/hr Monitor UOP. Olivo catheter in place. 3. Dementia already was on hospice. Apparently she is a moderate to severe bed bound but still interacting with family. Currently off hospice per family wishes but will be signed back on per family and requesting SNF placement. 4. Hypertension. back on Norvasc. 5. 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 6. Chronic anemia, Hb 7.0 no transfusion planned. Prophylaxis: Sequential compression devices to lower extremity for DVT prophylaxis and Pepcid for GI prophylaxis. Disposition. DNR, modified comfort measures and continue supportive care and treatment for underlying bacteremia/sepsis and acute renal failure. Fair prognosis as of now, likely to go back home on hospice for her dementia at least. Discussed with family and per /SW [facility] been [facility] and looking for SNF per family request Subjective 24 Hr Interval Summary Free Text/Dictation Patient doing Ok, stable for now but still with CKD and MS poor at baseline due to Dementia Needs Hospice/SNF placement Exam/Review of Systems Vital Signs Vitals Vital Signs Date Time Temp Pulse Resp B/P Pulse Ox O2 Delivery O2 Flow Rate FiO2 11/12/16 07:45 98.4 20 20 132/64 94 11/12/16 01:40 4.0 11/11/16 20:00 Nasal Cannula Intake and Output 11/11/16 11/11/16 11/12/16 15:00 23:00 07:00 Intake Total 640 ml 590 ml 695 ml Output Total 500 ml 800 ml Balance 640 ml 90 ml -105 ml Exam Constitutional: alert, frail, oriented (x1), other (bed bound and disoriented ) Respiratory: diminished breath sounds (bases , better ), normal air movement Cardiovascular: nl pulses, regular rate and rhythm Gastrointestinal: non-tender, soft Musculoskeletal: muscle tone (poor ), other (no clubbing or cyanosis, mild edema) Extremities: normal pulses 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, confused, lethargic (but more arousable ) Results Result Diagram: 11/12/16 1030 11/12/16 1030 Results 24 hrs Laboratory Tests Test 11/12/16 10:30 White Blood Count 10.9 H Red Blood Count 2.26 L Hemoglobin 7.0 L Hematocrit 20.6 L Mean Corpuscular Volume 91.2 Mean Corpuscular Hemoglobin 31.0 Mean Corpuscular Hemoglobin Concent 34.0 Red Cell Distribution Width 15.9 H Platelet Count 47 #L Mean Platelet Volume Neutrophils % 85.0 H Band Neutrophils % 1.0 Lymphocytes % 11.0 L Monocytes % 1.0 Eosinophils % 2.0 Neutrophils # 9.3 H Lymphocytes # 1.2 Monocytes # 0.1 L Eosinophils # 0.2 Platelet Estimate PLT APPEAR DECREASED Sodium Level 139 Potassium Level 3.3 L Chloride Level 102 Carbon Dioxide Level 29 Anion Gap 11 Blood Urea Nitrogen 63 H Creatinine 2.30 H Glucose Level 132 Calcium Level 8.2 L Phosphorus Level 3.3 Magnesium Level 1.4 L Medications Medications Current Medications Ondansetron HCl (Zofran Inj) 4 mg Q6H PRN IV NAUSEA AND/OR VOMITING Last administered on 11/03/16t 17:57; Admin Dose 4 MG; Start 11/03/16 at 14:30 Acetaminophen (Tylenol Tab) 650 mg Q6H PRN PO PAIN LEVEL 1-3 OR FEVER; Start at 14:30 Docusate Sodium (Colace) 100 mg Q12H PRN PO CONSTIPATION; Start 11/03/16 at 14: 30 Magnesium Hydroxide (Milk Of Mag) 30 ml DAILY PRN PO CONSTIPATION; Start at 14:30 Bisacodyl (Dulcolax Supp) 10 mg DAILY PRN [place] CONSTIPATION; Start 11/03/16 at 14 :30 Famotidine (Pepcid Iv) 20 mg DAILY IV Last administered on 11/12/16 10:41; Admin Dose 20 MG; Start 11/03/16 at 15:00 Citalopram Hydrobromide (Celexa) 10 mg DAILY PO Last administered on 11/12/16 08:24; Admin Dose 10 MG; Start 11/04/16 at 09:00 Quetiapine Fumarate 25 mg 25 mg QHS PO Last administered on 11/11/16 20:19; Admin Dose 25 MG; Start 11/03/16 at 21:00 Cefepime HCl (Maxipime 2gm/50 ml (Pmx)) 50 ml @ 100 mls/hr Q24H IVPB Last administered on 11/11/16 20:19; Admin Dose 100 MLS/HR; Start 11/04/16 at 21:00 Morphine Sulfate (morphine) 1 mg Q4H PRN IV MODERATE PAIN LEVEL 4-6 Last administered on 11/12/16 02:57; Admin Dose 1 MG; Start 11/03/16 at 16:30 Morphine Sulfate (morphine) 2 mg Q4H PRN IV PAIN LEVEL 6-10 Last administered on 11/12/16 11:08; Admin Dose 2 MG; Start 11/03/16 at 16:30 Dextrose (D50w Syringe) ONCE PRN IV POC BLOOD GLUCOSE <250 MG/DL; Start at 16:30 Dextrose (D50w Syringe) ONCE PRN IV POC BLOOD GLUCOSE <250 MG/DL; Start at 16:30 Amlodipine Besylate (Norvasc) 5 mg DAILY PO Last administered on 11/12/16 08:25 ; Admin Dose 5 MG; Start 11/09/16 at 12:00 Hydralazine HCl 10 mg 10 mg Q8H PRN IV ELEVATED BLOOD PRESSURE; Start 11/09/16 at 12:00 Potassium Chloride/Dextrose 1,000 ml @ 50 mls/hr Q20H IV Last administered on 11/12/16 10:41; Admin Dose 50 MLS/HR; Start 11/10/16 at 11:30 Vancomycin HCl (Vancocin) 250 ml @ 125 mls/hr Q48H IVPB Last administered on 17:17; Admin Dose 125 MLS/HR; Start 11/11/16 at 18:00 Miscellaneous Information (*Rx Drug Level Order Reminder*) VANCO TROUGH @ 1, 700 ON... ONCE ONCE XX ; Start 11/13/16 at 17:00; Stop 11/13/16 at 17:01 Furosemide (Lasix) 20 mg DAILY@06 IV ; Start 11/13/16 at 06:00 ИРИНА GONZALEZ Nov 12, 2016 13:14
[2016-11-12] MEDS ORDERED: MAGNESIUM SULFATE 2 GM/50 ML 50 ML IVPB ONE (14:30)
[2016-11-12 21:28] VITALS: BP 130/58; RESP 20
[2016-11-12] MEDS: CEFEPIME 2GM/50 ML (PMX) 50 ML IVPB SCH (22:17)
[2016-11-12] MEDS: QUETIAPINE 25 MG TAB PO SCH (22:18)
[2016-11-13] MEDS: D5W + KCL 20 MEQ 1,000 ML IV SCH ×2 (05:52→08:45)
[2016-11-13] MEDS ORDERED: FUROSEMIDE 20 MG INJ IV SCH (06:00)
[2016-11-13 06:50] VITALS: BP 92/60; PULSE 69
[2016-11-13 07:49] VITALS: BP 139/60; RESP 18
[2016-11-13] MEDS: CITALOPRAM 20 MG TAB PO SCH (08:40)
[2016-11-13] MEDS: FAMOTIDINE 20 MG INJ IV SCH (08:40)
[2016-11-13] MEDS: AMLODIPINE 5 MG TAB PO SCH (08:41)
--- NOTE | 2016-11-13 12:12 | PN ---
Date/Time of Note Date/Time of Note DATE: 11/13/16 TIME: 12:07 Assessment/Plan VTE Prophylaxis VTE Prophylaxis Intervention: SCD's Lines/Catheters IV Catheter Type (from Nrsg): Peripheral IV Urinary Cath still in place: Yes Reason Cath still needed: other (indicate) (JOAO, comfort, monitor UOP ) Assessment/Plan Assessment/Plan 89-year-old female with: 1. Altered mental status episodes of fevers, all consistent with sepsis. MS better a little bit every day and getting back to baseline. More awake, more verbal, but not oriented, still confused, demented Blood cx with staph and Urine cx with ESBL Ecoli, WBC better and repeat blood cx NGTD. Continue Cefepime and Vanco (6 more days) x 14 days total post negative blood cx. Renal function improved back to baseline of 1.7 to 2.0. Decreased Lasix to daily dosage Updated family, for now continue supportive care while awaiting placement in SNF back on hospice at least for her Dementia DNR on modified comfort measures kind of. No pressors. No BiPAP 2. Acute renal failure, on CKD, UOP picked up and renal function seems to be back to baseline. Resolved hypernatremia, with change of IVF to D5W D/c Lasix today, at lower IVF rate of 50 cc/hr Monitor UOP. BMP pending Olivo catheter in place. 3. Dementia already was on hospice. Apparently she is a moderate to severe bed bound but still interacting with family. Currently off hospice per family wishes but will be signed back on per family and requesting SNF placement. 4. Hypertension. back on Norvasc. 5. 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 6. Chronic anemia, Hb 7.0 no transfusion planned. Prophylaxis: Sequential compression devices to lower extremity for DVT prophylaxis and Pepcid for GI prophylaxis. Disposition. DNR, modified comfort measures and continue supportive care and treatment for underlying bacteremia/sepsis and acute renal failure. Fair prognosis as of now, likely to go back home on hospice for her dementia at least. Discussed with family and per /SW [place] has been notified and looking for SNF per family request Subjective 24 Hr Interval Summary Free Text/Dictation Patient more alert, verbal and awake but non sensical and confused which is likely her baseline BMP pending Will d/c Lasix for now Awaiting SNF availability for d/c plan Exam/Review of Systems Vital Signs Vitals Vital Signs Date Time Temp Pulse Resp B/P Pulse Ox O2 Delivery O2 Flow Rate FiO2 11/13/16 08:00 Nasal Cannula 4.0 11/13/16 07:49 97.8 68 18 139/60 96 Intake and Output 11/12/16 11/12/16 11/13/16 15:00 23:00 07:00 Intake Total 550 ml 760 ml 1010 ml Output Total 1000 ml 800 ml Balance 550 ml -240 ml 210 ml Exam Constitutional: alert, frail, other (verbal but non sensical and not oriented ) Psych: confusion Respiratory: diminished breath sounds (much improved ), normal air movement Cardiovascular: nl pulses, regular rate and rhythm Gastrointestinal: non-tender, soft Musculoskeletal: muscle tone (poor) Extremities: normal pulses, other (no edema, clubbign or cyanosis ) Neurological: confused, lethargic Results Result Diagram: 11/12/16 1030 11/12/16 1030 Medications Medications Current Medications Ondansetron HCl (Zofran Inj) 4 mg Q6H PRN IV NAUSEA AND/OR VOMITING Last administered on 11/03/16 17:57; Admin Dose 4 MG; Start 11/03/16 at 14:30 Acetaminophen (Tylenol Tab) 650 mg Q6H PRN PO PAIN LEVEL 1-3 OR FEVER; Start at 14:30 Docusate Sodium (Colace) 100 mg Q12H PRN PO CONSTIPATION; Start 11/03/16 at 14: 30 Magnesium Hydroxide (Milk Of Mag) 30 ml DAILY PRN PO CONSTIPATION; Start at 14:30 Bisacodyl (Dulcolax Supp) 10 mg DAILY PRN [place] CONSTIPATION; Start 11/03/16 at 14 :30 Famotidine (Pepcid Iv) 20 mg DAILY IV Last administered on 11/13/16 08:40; Admin Dose 20 MG; Start 11/03/16 at 15:00 Citalopram Hydrobromide (Celexa) 10 mg DAILY PO Last administered on 11/13/16 08:40; Admin Dose 10 MG; Start 11/04/16 at 09:00 Quetiapine Fumarate 25 mg 25 mg QHS PO Last administered on 11/12/16 22:18; Admin Dose 25 MG; Start 11/03/16 at 21:00 Cefepime HCl (Maxipime 2gm/50 ml (Pmx)) 50 ml @ 100 mls/hr Q24H IVPB Last administered on 11/12/16 22:17; Admin Dose 100 MLS/HR; Start 11/04/16 at 21:00 Morphine Sulfate (morphine) 1 mg Q4H PRN IV MODERATE PAIN LEVEL 4-6 Last administered on 11/12/16 02:57; Admin Dose 1 MG; Start 11/03/16 at 16:30 Morphine Sulfate (morphine) 2 mg Q4H PRN IV PAIN LEVEL 6-10 Last administered on 11/12/16 11:08; Admin Dose 2 MG; Start 11/03/16 at 16:30 Dextrose (D50w Syringe) ONCE PRN IV POC BLOOD GLUCOSE <250 MG/DL; Start at 16:30 Dextrose (D50w Syringe) ONCE PRN IV POC BLOOD GLUCOSE <250 MG/DL; Start at 16:30 Amlodipine Besylate (Norvasc) 5 mg DAILY PO Last administered on 11/13/16 08: 41; Admin Dose 5 MG; Start 11/09/16 at 12:00 Hydralazine HCl 10 mg 10 mg Q8H PRN IV ELEVATED BLOOD PRESSURE; Start 11/09/16 at 12:00 Potassium Chloride/Dextrose 1,000 ml @ 50 mls/hr Q20H IV Last administered on 11/13/16 08:45; Admin Dose 50 MLS/HR; Start 11/10/16 at 11:30 Vancomycin HCl (Vancocin) 250 ml @ 125 mls/hr Q48H IVPB Last administered on 17:17; Admin Dose 125 MLS/HR; Start 11/11/16 at 18:00 Miscellaneous Information (*Rx Drug Level Order Reminder*) VANCO TROUGH @ 1, 700 ON... ONCE ONCE XX ; Start 11/13/16 at 17:00; Stop 11/13/16 at 17:01 Furosemide (Lasix) 20 mg DAILY@06 IV ; Start 11/13/16 at 06:00 ИРИНА GONZALEZ Nov 13, 2016 12:12
--- NOTE | 2016-11-13 12:14 | PDOCDIS ---
Discharge Instructions CONDITION Patient Condition: Stable HOME CARE INSTRUCTIONS: Special Diet: Soft Diet ACTIVITY: Activity Restrictions Comment: bed bound comfort care FOLLOW UP/APPOINTMENTS Appointments Home with Hospice ИРИНА GONZALEZ Nov 13, 2016 12:14 ИРИНА GONZALEZ Nov 13, 2016 12:14
[2016-11-13 13:12] LABS: CALCIUM 8.8 mg/dl (8.4-10.2); CREATININE 2.43 mg/dl (0.44-1.00); POTASSIUM 4.1 mmol/L (3.5-5.1)
[2016-11-13] MEDS: VANCOMYCIN 1 GM in NS 250 ML IVPB SCH (18:03)
[2016-11-13 20:47] VITALS: BP 112/80; RESP 20
[2016-11-13] MEDS: CEFEPIME 2GM/50 ML (PMX) 50 ML IVPB SCH (21:11)
[2016-11-13] MEDS: QUETIAPINE 25 MG TAB PO SCH (21:11)
[2016-11-14] MEDS: morphine 2 MG INJ IV PRN (05:17)
[2016-11-14] MEDS: D5W + KCL 20 MEQ 1,000 ML IV SCH (05:18)
[2016-11-14 07:53] VITALS: BP 138/62; RESP 19
[2016-11-14 08:58] LABS: CALCIUM 8.2 mg/dl (8.4-10.2); POTASSIUM 4.3 mmol/L (3.5-5.1)
[2016-11-14] MEDS: CITALOPRAM 20 MG TAB PO SCH (08:58)
[2016-11-14] MEDS: AMLODIPINE 5 MG TAB PO SCH (08:59)
[2016-11-14] MEDS: FAMOTIDINE 20 MG INJ IV SCH (08:59)
[2016-11-14 09:26] LABS: CREATININE 2.55 mg/dl (0.44-1.00)
--- NOTE | 2016-11-14 09:47 | PN ---
Date/Time of Note Date/Time of Note DATE: 11/14/16 TIME: 09:42 Assessment/Plan VTE Prophylaxis VTE Prophylaxis Intervention: SCD's Lines/Catheters IV Catheter Type (from Nrsg): Saline Lock Urinary Cath still in place: Yes Reason Cath still needed: other (indicate) (s/p ARF ) Assessment/Plan Assessment/Plan 89-year-old female with: 1. Altered mental status episodes of fevers, all consistent with sepsis. MS better a little bit every day and getting back to baseline. More awake, more verbal, but not oriented, still confused, demented Blood cx with staph and Urine cx with ESBL Ecoli, WBC better and repeat blood cx NGTD. Continue Cefepime and Vanco (5 more days) x 14 days total post negative blood cx. Renal function improved back to baseline of 1.7 to 2.0. D/c'd Lasix. Updated family, for now continue supportive care while awaiting placement in SNF back on hospice at least for her Dementia in the next 24 hrs DNR on modified comfort measures kind of. No pressors. No BiPAP 2. Acute renal failure, on CKD, UOP picked up and renal function seems to be back to baseline. IVF changed to D5NS to 75 cc/hr Off Lasix. Monitor UOP. BMP stable Olivo catheter in place. 3. Dementia already was on hospice. Apparently she is a moderate to severe bed bound but still interacting with family. She seems to be close to baseline Currently off hospice per family wishes but will be signed back on per family and requesting SNF placement. 4. Hypertension. back on Norvasc. 5. 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 6. Chronic anemia, Hb 7.0 no transfusion planned. Prophylaxis: Sequential compression devices to lower extremity for DVT prophylaxis and Pepcid for GI prophylaxis. Disposition. DNR, modified comfort measures and continue supportive care and treatment for underlying bacteremia/sepsis and acute renal failure. Fair prognosis as of now, likely to go back home on hospice for her dementia at least. Discussed with family and per [facility] been [facility] and looking for SNF per family request Subjective 24 Hr Interval Summary Free Text/Dictation Patient doing Ok and stable so far Son at bedside updated and awaiting SNF with Hospice placement for tomorrow hopefully Exam/Review of Systems Vital Signs Vitals Vital Signs Date Time Temp Pulse Resp B/P Pulse Ox O2 Delivery O2 Flow Rate FiO2 11/14/16 07:53 97.5 81 19 138/62 98 11/13/16 21:10 Nasal Cannula 4.0 Intake and Output 11/13/16 11/13/16 11/14/16 15:00 23:00 07:00 Intake Total 150 ml 790 ml 550 ml Output Total 450 ml 300 ml Balance 150 ml 340 ml 250 ml Exam Constitutional: alert, frail, oriented (x2) Respiratory: diminished breath sounds (bases bilaterally ), normal air movement Cardiovascular: nl pulses, regular rate and rhythm Gastrointestinal: non-tender, soft Musculoskeletal: muscle tone (poor), nl extremities to inspection, other (bed bound at baseline ) Extremities: normal pulses, other (no edema, clubbing or cyanosis ) Neurological: 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 CLEANER II-XII 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, confused, lethargic, other (responsive and awake ) Results Result Diagram: 11/12/16 1030 11/14/16 0715 Results 24 hrs Laboratory Tests Test 11/13/16 12:10 11/13/16 16:55 11/14/16 07:15 Sodium Level 137 132 L Potassium Level 4.1 4.3 Chloride Level 100 101 Carbon Dioxide Level 26 23 Anion Gap 15 12 Blood Urea Nitrogen 65 H 65 H Creatinine 2.43 H 2.55 H Glucose Level 105 98 Calcium Level 8.8 8.2 L Vancomycin Level Trough 18.6 Medications Medications Current Medications Ondansetron HCl (Zofran Inj) 4 mg Q6H PRN IV NAUSEA AND/OR VOMITING Last administered on 11/03/16t 17:57; Admin Dose 4 MG; Start 11/03/16 at 14:30 Acetaminophen (Tylenol Tab) 650 mg Q6H PRN PO PAIN LEVEL 1-3 OR FEVER; Start at 14:30 Docusate Sodium (Colace) 100 mg Q12H PRN PO CONSTIPATION; Start 11/03/16 at 14: 30 Magnesium Hydroxide (Milk Of Mag) 30 ml DAILY PRN PO CONSTIPATION; Start at 14:30 Bisacodyl (Dulcolax Supp) 10 mg DAILY PRN [place] CONSTIPATION; Start 11/03/16 at 14 :30 Famotidine (Pepcid Iv) 20 mg DAILY IV Last administered on 11/14/16 08:59; Admin Dose 20 MG; Start 11/03/16 at 15:00 Citalopram Hydrobromide (Celexa) 10 mg DAILY PO Last administered on 11/14/16 08:58; Admin Dose 10 MG; Start 11/04/16 at 09:00 Quetiapine Fumarate (Seroquel) 25 mg QHS PO Last administered on 11/13/16 21: 11; Admin Dose 25 MG; Start 11/03/16 at 21:00 Morphine Sulfate (morphine) 1 mg Q4H PRN IV MODERATE PAIN LEVEL 4-6 Last administered on 11/14/16 05:17; Admin Dose 1 MG; Start 11/03/16 at 16:30 Morphine Sulfate (morphine) 2 mg Q4H PRN IV PAIN LEVEL 6-10 Last administered on 11/12/16 11:08; Admin Dose 2 MG; Start 11/03/16 at 16:30 Dextrose (D50w Syringe) ONCE PRN IV POC BLOOD GLUCOSE <250 MG/DL; Start at 16:30 Dextrose (D50w Syringe) ONCE PRN IV POC BLOOD GLUCOSE <250 MG/DL; Start at 16:30 Amlodipine Besylate (Norvasc) 5 mg DAILY PO Last administered on 11/14/16 08: 59; Admin Dose 5 MG; Start 11/09/16 at 12:00 Hydralazine HCl 10 mg 10 mg Q8H PRN IV ELEVATED BLOOD PRESSURE; Start 11/09/16 at 12:00 Potassium Chloride/Dextrose 1,000 ml @ 50 mls/hr Q20H IV Last administered on 11/14/16 05:18; Admin Dose 50 MLS/HR; Start 11/10/16 at 11:30 Vancomycin HCl 750 mg/Sodium Chloride 150 ml @ 75 mls/hr Q48H IVPB ; Start 05/22 at 22:00 Cefepime HCl (Maxipime 1gm/50 ml (Pmx)) 50 ml @ 100 mls/hr Q24H IVPB ; Start at 21:00 ИРИНА GONZALEZ F Nov 14, 2016 09:47
[2016-11-14] MEDS ORDERED: MAGNESIUM SULFATE 2 GM/50 ML 50 ML IVPB ONE (10:00)
[2016-11-14] MEDS: DEXTROSE 5%-0.9% NACL 1,000 ML IV SCH ×2 (11:53→23:20)
[2016-11-14 20:30] VITALS: BP 127/58; RESP 20
[2016-11-14] MEDS: CEFEPIME 1GM/50 ML IVPB SCH (22:15)
[2016-11-14] MEDS: QUETIAPINE 25 MG TAB PO SCH (22:53)
[2016-11-15] MEDS: DEXTROSE 5%-0.9% NACL 1,000 ML IV SCH ×3 (04:02→17:20)
[2016-11-15 06:52] LABS: CALCIUM 8.4 mg/dl (8.4-10.2); CREATININE 2.67 mg/dl (0.44-1.00); POTASSIUM 3.8 mmol/L (3.5-5.1)
[2016-11-15 07:44] VITALS: BP 140/69; RESP 20
[2016-11-15] MEDS: CITALOPRAM 20 MG TAB PO SCH (08:36)
[2016-11-15] MEDS: AMLODIPINE 5 MG TAB PO SCH (08:36)
[2016-11-15] MEDS: FAMOTIDINE 20 MG INJ IV SCH (08:37)
--- NOTE | 2016-11-15 10:53 | PN ---
Date/Time of Note Date/Time of Note DATE: 11/15/16 TIME: 10:27 Assessment/Plan VTE Prophylaxis VTE Prophylaxis Intervention: SCD's Lines/Catheters IV Catheter Type (from Nrsg): Saline Lock Urinary Cath still in place: Yes Reason Cath still needed: terminal illness/intractable pain, other (indicate) ( JOAO, bed ridden ) Assessment/Plan Assessment/Plan 89-year-old female with: 1. Altered mental status episodes of fevers, all consistent with sepsis. MS better a little bit every day and getting back to baseline. More awake, more verbal, but not oriented, still confused, demented Blood cx with staph and Urine cx with ESBL Ecoli, WBC better and repeat blood cx NGTD. Continue Cefepime and Vanco (4 more days) x 14 days total post negative blood cx. Renal function improved back to possible new baseline of 2.0. Updated family, for now continue supportive care while awaiting placement in SNF back on hospice at least for her Dementia in the next 24 hrs DNR on modified comfort measures kind of. No pressors. No BiPAP 2. Acute renal failure, on CKD, UOP picked up and renal function seems to be back to baseline. IVF changed to D5NS to 75 cc/hr Off Lasix. Monitor UOP. BMP stable this AM Olivo catheter in place, may need to be changed prior to discharge to SNF 3. Dementia already was on hospice. Apparently she is a moderate to severe bed bound but still interacting with family. She seems to be close to baseline Currently off hospice per family wishes but will be signed back on per family and requesting SNF placement. 4. Hypertension. back on Norvasc. 5. 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 6. Chronic anemia, Hb 7.0 no transfusion planned. Prophylaxis: Sequential compression devices to lower extremity for DVT prophylaxis and Pepcid for GI prophylaxis. Disposition. DNR, modified comfort measures and continue supportive care and treatment for underlying bacteremia/sepsis and acute renal failure. Fair prognosis as of now, likely to go back home on hospice for her dementia at least. Discussed with family and per CM/SW will need to sign up with Hospice company that goes to [facility] which the SNF the family wants patient to go to. Subjective 24 Hr Interval Summary Free Text/Dictation Patient doing OK Remains stable and MS likely around baseline Awaiting SNF placement with hospice Exam/Review of Systems Vital Signs Vitals Vital Signs Date Time Temp Pulse Resp B/P Pulse Ox O2 Delivery O2 Flow Rate FiO2 11/15/16 08:00 Nasal Cannula 4.0 11/15/16 07:44 97.8 84 20 140/69 97 Intake and Output 11/14/16 11/14/16 11/15/16 15:00 23:00 07:00 Intake Total 275 ml 550 ml 825 ml Output Total 650 ml 500 ml Balance 275 ml -100 ml 325 ml Exam Constitutional: alert, frail, oriented (x1), other (bed ridden) Respiratory: diminished breath sounds (bases but better ), normal air movement Cardiovascular: nl pulses, regular rate and rhythm Gastrointestinal: non-tender, soft Musculoskeletal: muscle tone (poor) Extremities: normal pulses, other (no edema, clubbing or cyanosis) Neurological: AIR POLLUTION COMPLIANCE INSPECTOR II-XII intact, nl mental status, nl speech, other ( genralised weakness ) Results Result Diagram: 11/12/16 1030 11/15/16 0430 Results 24 hrs Laboratory Tests Test 11/15/16 04:30 11/15/16 04:35 Sodium Level 137 Potassium Level 3.8 Chloride Level 106 Carbon Dioxide Level 21 Anion Gap 14 Blood Urea Nitrogen 60 H Creatinine 2.67 H Glucose Level 124 Calcium Level 8.4 Magnesium Level 2.6 H Medications Medications Current Medications Ondansetron HCl (Zofran Inj) 4 mg Q6H PRN IV NAUSEA AND/OR VOMITING Last administered on 11/03/16t 17:57; Admin Dose 4 MG; Start 11/03/16 at 14:30 Acetaminophen (Tylenol Tab) 650 mg Q6H PRN PO PAIN LEVEL 1-3 OR FEVER; Start at 14:30 Docusate Sodium (Colace) 100 mg Q12H PRN PO CONSTIPATION; Start 11/03/16 at 14: 30 Magnesium Hydroxide (Milk Of Mag) 30 ml DAILY PRN PO CONSTIPATION; Start at 14:30 Bisacodyl (Dulcolax Supp) 10 mg DAILY PRN [place] CONSTIPATION; Start 11/03/16 at 14 :30 Famotidine (Pepcid Iv) 20 mg DAILY IV Last administered on 11/15/16 08:37; Admin Dose 20 MG; Start 11/03/16 at 15:00 Citalopram Hydrobromide (Celexa) 10 mg DAILY PO Last administered on 11/15/16 08:36; Admin Dose 10 MG; Start 11/04/16 at 09:00 Quetiapine Fumarate (Seroquel) 25 mg QHS PO Last administered on 11/14/16 22: 53; Admin Dose 25 MG; Start 11/03/16 at 21:00 Morphine Sulfate (morphine) 1 mg Q4H PRN IV MODERATE PAIN LEVEL 4-6 Last administered on 11/14/16 05:17; Admin Dose 1 MG; Start 11/03/16 at 16:30 Morphine Sulfate (morphine) 2 mg Q4H PRN IV PAIN LEVEL 6-10 Last administered on 11/12/16 11:08; Admin Dose 2 MG; Start 11/03/16 at 16:30 Dextrose (D50w Syringe) ONCE PRN IV POC BLOOD GLUCOSE <250 MG/DL; Start at 16:30 Dextrose (D50w Syringe) ONCE PRN IV POC BLOOD GLUCOSE <250 MG/DL; Start at 16:30 Amlodipine Besylate (Norvasc) 5 mg DAILY PO Last administered on 11/15/16 08: 36; Admin Dose 5 MG; Start 11/09/16 at 12:00 Hydralazine HCl 10 mg 10 mg Q8H PRN IV ELEVATED BLOOD PRESSURE; Start 11/09/16 at 12:00 Vancomycin HCl 750 mg/Sodium Chloride 150 ml @ 75 mls/hr Q48H IVPB ; Start 05/22 at 22:00 Cefepime HCl 50 ml @ 100 mls/hr Q24H IVPB Last administered on 11/14/16 22:15 ; Admin Dose 100 MLS/HR; Start 11/14/16 at 21:00 Dextrose/Sodium Chloride (D5-NS) 1,000 ml @ 75 mls/hr [id number] IV Last administered on 11/15/16 04:02; Admin Dose 75 MLS/HR; Start 11/14/16 at 10:00 ИРИНА GONZALEZ Nov 15, 2016 10:47
[2016-11-15 15:34] LABS: ADD UMIC YES; URINE BILIRUBIN (Dip) NEGATIVE (NEGATIVE); URINE BLOOD (Dip) 3+ (NEGATIVE); URINE COLOR LT. YELLOW (YELLOW); URINE GLUCOSE (Dip) NEGATIVE (NEGATIVE); URINE KETONES (Dip) NEGATIVE (NEGATIVE); URINE LEUKOCYTE ESTERASE (Dip) NEGATIVE (NEGATIVE); URINE NITRITE (Dip) NEGATIVE (NEGATIVE); URINE TOTAL PROTEIN (Dip) 1+ (NEGATIVE); URINE UROBILINOGEN (Dip) 0.2 E.U./dL (0.1-1.0)
[2016-11-15 20:55] VITALS: BP 123/59; RESP 18
[2016-11-15] MEDS ORDERED: DOCUSATE SODIUM 10 MG/ML (10ML CUP) PO PRN (21:00)
[2016-11-15] MEDS: QUETIAPINE 25 MG TAB PO SCH (21:04)
[2016-11-15] MEDS: CEFEPIME 1GM/50 ML IVPB SCH (21:05)
[2016-11-15] MEDS: morphine 2 MG INJ IV PRN (21:30)
[2016-11-15] MEDS ORDERED: VANCOMYCIN 750 MG in SOD CHLORIDE 0.9% 150 ML IVPB SCH (22:00)
[2016-11-16] MEDS: BISACODYL 10 MG SUPP PR PRN ×2 (00:14→21:25)
[2016-11-16] MEDS: ALBUTEROL 0.083% (NEB) 2.5 MG/3 ML AMP NEB PRN (00:19)
[2016-11-16] MEDS: DEXTROSE 5%-0.9% NACL 1,000 ML IV SCH ×3 (02:00→15:20)
[2016-11-16 08:13] VITALS: BP 136/62; RESP 17
[2016-11-16] MEDS: FAMOTIDINE 20 MG INJ IV SCH (08:52)
[2016-11-16] MEDS: CITALOPRAM 20 MG TAB PO SCH (08:52)
[2016-11-16] MEDS: AMLODIPINE 5 MG TAB PO SCH (08:52)
--- NOTE | 2016-11-16 10:24 | PN ---
Date/Time of Note Date/Time of Note DATE: 11/16/16 TIME: 10:23 Assessment/Plan VTE Prophylaxis VTE Prophylaxis Intervention: SCD's Lines/Catheters IV Catheter Type (from Nrsg): Saline Lock Urinary Cath still in place: Yes Reason Cath still needed: other (indicate) (monitor UOP and comfort ) Assessment/Plan Assessment/Plan 89-year-old female with: 1. Altered mental status episodes of fevers, all consistent with sepsis. MS better a little bit every day and getting back to baseline. More awake, more verbal, but not oriented, still confused, demented Blood cx with staph and Urine cx with ESBL Ecoli, WBC better and repeat blood cx negative and repeat Urine cx NGTD. Continue Cefepime and Vanco (3 more days) x 14 days total post negative blood cx. Renal function improved back to possible new baseline of 2.0. Updated family, for now continue supportive care while awaiting placement in SNF back on hospice at least for her Dementia in the next 24 hrs DNR on modified comfort measures kind of. No pressors. No BiPAP 2. Acute renal failure, on CKD, UOP picked up and renal function seems to be back to baseline. IVF changed to D5NS to 75 cc/hr because of minimal po intake Off Lasix. Monitor UOP. BMP has been stable lately Olivo catheter in place, repeat UA negative and repeat Urine cx NGTD 3. Dementia already was on hospice. Apparently she is a moderate to severe bed bound but still interacting with family. She seems to be close to baseline Currently off hospice per family wishes but will be signed back on per family and requesting SNF placement. 4. Hypertension. back on Norvasc. 5. 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 6. Chronic anemia, Hb 7.0 on last check and no transfusion per comfort care. Prophylaxis: Sequential compression devices to lower extremity for DVT prophylaxis and Pepcid for GI prophylaxis. Disposition. DNR, modified comfort measures and continue supportive care and treatment for underlying bacteremia/sepsis and acute renal failure. Fair prognosis as of now, likely to go back home on hospice for her dementia at least. Discussed with family and per CM/SW will need to sign up with Hospice company that goes to [facility] which the SNF the family wants patient to go to. Consult with BRIANNA today. Subjective 24 Hr Interval Summary Free Text/Dictation Patient remains unchanged today, she has 3 more days of IV abx Still awaiting d/c plan to SNF with Hospice, I have consulted BRIANNA since family wants patient placed at [facility] Exam/Review of Systems Vital Signs Vitals Vital Signs Date Time Temp Pulse Resp B/P Pulse Ox O2 Delivery O2 Flow Rate FiO2 11/16/16 08:13 97.0 17 136/62 95 11/16/16 00:19 4.0 11/16/16 00:19 95 Nasal Cannula Intake and Output 11/15/16 11/15/16 11/16/16 15:00 23:00 07:00 Intake Total 1075 ml 1037.5 ml Output Total 600 ml 300 ml Balance 475 ml 737.5 ml Exam Constitutional: alert, frail, oriented (x1 at most ), other (non sensical ) Respiratory: diminished breath sounds (bases ), normal air movement Cardiovascular: nl pulses, regular rate and rhythm Gastrointestinal: non-tender, soft Musculoskeletal: muscle tone (poor), other (contracted left hand and LE ) Extremities: normal pulses, other (no edema, clubbing or cyanosis ) Neurological: BAND PRESSER II-XII intact, confused, lethargic Results Result Diagram: 11/12/16 1030 11/15/16 0430 Results 24 hrs Laboratory Tests Test 11/15/16 14:30 Urine Color LT. YELLOW Urine Clarity CLEAR Urine pH 7.0 Urine Specific [place] 1.015 Urine Ketones NEGATIVE Urine Nitrite NEGATIVE Urine Bilirubin NEGATIVE Urine Urobilinogen 0.2 E.U./dL Urine Leukocyte Esterase NEGATIVE Urine Microscopic RBC 10-25 Urine Microscopic WBC 5-10 Urine Epithelial Cells OCCASIONAL Urine Hemoglobin 3+ H Urine Glucose NEGATIVE Urine Total Protein 1+ H Medications Medications Current Medications Ondansetron HCl (Zofran Inj) 4 mg Q6H PRN IV NAUSEA AND/OR VOMITING Last administered on 11/03/16t 17:57; Admin Dose 4 MG; Start 11/03/16 at 14:30 Acetaminophen (Tylenol Tab) 650 mg Q6H PRN PO PAIN LEVEL 1-3 OR FEVER; Start at 14:30 Magnesium Hydroxide (Milk Of Mag) 30 ml DAILY PRN PO CONSTIPATION; Start at 14:30 Bisacodyl (Dulcolax Supp) 10 mg DAILY PRN [place] CONSTIPATION Last administered on 11/16/16 00:14; Admin Dose 10 MG; Start 11/03/16 at 14:30 Famotidine (Pepcid Iv) 20 mg DAILY IV Last administered on 11/16/16 08:52; Admin Dose 20 MG; Start 11/03/16 at 15:00 Citalopram Hydrobromide (Celexa) 10 mg DAILY PO Last administered on 11/16/16 08:52; Admin Dose 10 MG; Start 11/04/16 at 09:00 Quetiapine Fumarate (Seroquel) 25 mg QHS PO Last administered on 11/15/16 21: 04; Admin Dose 25 MG; Start 11/03/16 at 21:00 Morphine Sulfate (morphine) 1 mg Q4H PRN IV MODERATE PAIN LEVEL 4-6 Last administered on 11/15/16 21:30; Admin Dose 1 MG; Start 11/03/16 at 16:30 Morphine Sulfate (morphine) 2 mg Q4H PRN IV PAIN LEVEL 6-10 Last administered on 11/12/16 11:08; Admin Dose 2 MG; Start 11/03/16 at 16:30 Dextrose (D50w Syringe) ONCE PRN IV POC BLOOD GLUCOSE <250 MG/DL; Start at 16:30 Dextrose (D50w Syringe) ONCE PRN IV POC BLOOD GLUCOSE <250 MG/DL; Start at 16:30 Amlodipine Besylate (Norvasc) 5 mg DAILY PO Last administered on 11/16/16 08: 52; Admin Dose 5 MG; Start 11/09/16 at 12:00 Hydralazine HCl 10 mg 10 mg Q8H PRN IV ELEVATED BLOOD PRESSURE; Start 11/09/16 at 12:00 Vancomycin HCl 750 mg/Sodium Chloride 150 ml @ 75 mls/hr Q48H IVPB Last administered on 11/15/16 21:45; Admin Dose 75 MLS/HR; Start 11/15/16 at 22:00 Cefepime HCl 50 ml @ 100 mls/hr Q24H IVPB Last administered on 11/15/16 21:05 ; Admin Dose 100 MLS/HR; Start 11/14/16 at 21:00 Dextrose/Sodium Chloride (D5-NS) 1,000 ml @ 75 mls/hr [id number] IV Last administered on 11/16/16t 09:02; Admin Dose 75 MLS/HR; Start 11/14/16 at 10:00 Docusate Sodium (Colace Liquid Cup) 100 mg Q12H PRN PO CONSTIPATION; Start 05/22 at 21:00 ИРИНА GONZALEZ Nov 16, 2016 10:24
[2016-11-16 20:05] VITALS: BP 150/79; RESP 17
[2016-11-16] MEDS: QUETIAPINE 25 MG TAB PO SCH (21:25)
[2016-11-16] MEDS: CEFEPIME 1GM/50 ML IVPB SCH (21:25)
[2016-11-17] MEDS: DEXTROSE 5%-0.9% NACL 1,000 ML IV SCH (01:15)
[2016-11-17 06:54] LABS: CREATININE 2.57 mg/dl (0.44-1.00)
[2016-11-17 07:50] VITALS: BP 124/81; RESP 20
[2016-11-17] MEDS ORDERED: FAMOTIDINE 20 MG TAB PO SCH (09:00)
[2016-11-17] MEDS: CITALOPRAM 20 MG TAB PO SCH (09:53)
[2016-11-17] MEDS: AMLODIPINE 5 MG TAB PO SCH (09:53)
--- NOTE | 2016-11-17 10:34 | PN ---
Date/Time of Note Date/Time of Note DATE: 11/17/16 TIME: 10:22 Assessment/Plan VTE Prophylaxis VTE Prophylaxis Intervention: SCD's Lines/Catheters IV Catheter Type (from Nrsg): Peripheral IV Urinary Cath still in place: Yes Reason Cath still needed: terminal illness/intractable pain, other (indicate) ( CKD) Assessment/Plan Assessment/Plan 89-year-old female with: 1. Altered mental status episodes of fevers, all consistent with sepsis. MS better a little bit every day and getting back to baseline. More awake, more verbal, but not oriented, still confused, demented Blood cx with staph and Urine cx with ESBL Ecoli, WBC better and repeat blood cx negative and repeat Urine cx NGTD. D/c abx today, patient completed course and plan to d/c home with [facility] for home hospice Renal function improved back to possible new baseline of 2.0. Updated family, for now continue supportive care while awaiting placement in SNF back on hospice at least for her Dementia in the next 24 hrs DNR on modified comfort measures kind of. No pressors. No BiPAP 2. Acute renal failure, on CKD, UOP picked up and renal function seems to be back to baseline. IVF changed to D5NS to 75 cc/hr because of minimal po intake Off Lasix. Monitor UOP. BMP has been stable lately Olivo catheter in place, Home with Hospice today 3. Dementia already was on hospice. Apparently she is a moderate to severe bed bound but still interacting with family. She seems to be close to baseline Currently off hospice per family wishes but will be signed back on per family and requesting SNF placement. Home with hospice today 4. Hypertension. back on Norvasc. 5. 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 6. Chronic anemia, Hb 7.0 on last check and no transfusion per comfort care. Home with hospice today Prophylaxis: Sequential compression devices to lower extremity for DVT prophylaxis and Pepcid for GI prophylaxis. Disposition. DNR, modified comfort measures and continue supportive care and treatment for underlying bacteremia/sepsis and acute renal failure. Fair prognosis as of now, likely to go back home on hospice for her dementia at least. [facility] did see patient and d/c home with Hospice via ambulance today. Subjective 24 Hr Interval Summary Free Text/Dictation Patient unchanged and plan to go back home on Hospice today Patient is now signed up with [facility] Exam/Review of Systems Vital Signs Vitals Vital Signs Date Time Temp Pulse Resp B/P Pulse Ox O2 Delivery O2 Flow Rate FiO2 11/16/16 23:16 4.0 11/16/16 20:05 98.0 88 17 150/79 100 11/16/16 20:00 Nasal Cannula Intake and Output 11/16/16 11/16/16 11/17/16 14:59 22:59 06:59 Intake Total 200 ml 1400 ml Output Total 650 ml 500 ml Balance -450 ml 900 ml Exam Constitutional: alert, frail, other (bed bound and not oriented ) Respiratory: diminished breath sounds (bases bilaterally ), normal air movement Cardiovascular: nl pulses, regular rate and rhythm Gastrointestinal: non-tender, soft Musculoskeletal: nl extremities to inspection Extremities: normal pulses, other (mild dependent edema ) Neurological: GALLERY ASSISTANT II-XII intact, confused, lethargic, other (bed bound ) Results Result Diagram: 11/17/16 0530 Results 24 hrs Laboratory Tests Test 11/17/16 05:30 Blood Urea Nitrogen 50 H Creatinine 2.57 H Medications Medications Current Medications Ondansetron HCl (Zofran Inj) 4 mg Q6H PRN IV NAUSEA AND/OR VOMITING Last administered on 11/03/16 17:57; Admin Dose 4 MG; Start 11/03/16 at 14:30 Acetaminophen (Tylenol Tab) 650 mg Q6H PRN PO PAIN LEVEL 1-3 OR FEVER Last administered on 11/16/16 21:25; Admin Dose 650 MG; Start 11/03/16 at 14:30 Magnesium Hydroxide (Milk Of Mag) 30 ml DAILY PRN PO CONSTIPATION; Start at 14:30 Bisacodyl (Dulcolax Supp) 10 mg DAILY PRN [place] CONSTIPATION Last administered on 11/16/16 21:25; Admin Dose 10 MG; Start 11/03/16 at 14:30 Citalopram Hydrobromide (Celexa) 10 mg DAILY PO Last administered on 11/17/16 09:53; Admin Dose 10 MG; Start 11/04/16 at 09:00 Quetiapine Fumarate (Seroquel) 25 mg QHS PO Last administered on 11/16/16 21: 25; Admin Dose 25 MG; Start 11/03/16 at 21:00 Morphine Sulfate (morphine) 1 mg Q4H PRN IV MODERATE PAIN LEVEL 4-6 Last administered on 11/15/16 21:30; Admin Dose 1 MG; Start 11/03/16 at 16:30 Morphine Sulfate (morphine) 2 mg Q4H PRN IV PAIN LEVEL 6-10 Last administered on 11/12/16 11:08; Admin Dose 2 MG; Start 11/03/16 at 16:30 Dextrose (D50w Syringe) ONCE PRN IV POC BLOOD GLUCOSE <250 MG/DL; Start at 16:30 Dextrose (D50w Syringe) ONCE PRN IV POC BLOOD GLUCOSE <250 MG/DL; Start at 16:30 Amlodipine Besylate (Norvasc) 5 mg DAILY PO Last administered on 11/17/16 09: 53; Admin Dose 5 MG; Start 11/09/16 at 12:00 Hydralazine HCl 10 mg 10 mg Q8H PRN IV ELEVATED BLOOD PRESSURE; Start 11/09/16 at 12:00 Vancomycin HCl 750 mg/Sodium Chloride 150 ml @ 75 mls/hr Q48H IVPB Last administered on 11/15/16 21:45; Admin Dose 75 MLS/HR; Start 11/15/16 at 22:00 Cefepime HCl 50 ml @ 100 mls/hr Q24H IVPB Last administered on 11/16/16 21:25 ; Admin Dose 100 MLS/HR; Start 11/14/16 at 21:00 Dextrose/Sodium Chloride (D5-NS) 1,000 ml @ 75 mls/hr [id number] IV Last administered on 11/17/16 01:15; Admin Dose 75 MLS/HR; Start 11/14/16 at 10:00 Docusate Sodium (Colace Liquid Cup) 100 mg Q12H PRN PO CONSTIPATION; Start 05/22 at 21:00 Famotidine (Pepcid) 20 mg DAILY PO Last administered on 11/17/16 09:53; Admin Dose 20 MG; Start 11/17/16 at 09:00 ИРИНА GONZALEZ Nov 17, 2016 10:33
== END 2016-11-17 16:09 | disposition hospice, home (50) | DRG 871 ==
LOC: E/R 11:25 → PP2 13:07
PROVIDERS: ADMIT Internal Medicine; ATTEND Internal Medicine
PROC: 30233N1 Transfusion of Nonautologous Red Blood Cells into Peripheral Vein, Percutaneous Approach (ICD-10-PCS; principal; 2016-11-05)
DX: A41.1 Sepsis due to other specified staphylococcus (principal); G93.41 Metabolic encephalopathy; N17.9 Acute kidney failure, unspecified; N39.0 Urinary tract infection, site not specified; E78.5 Hyperlipidemia, unspecified; D64.9 Anemia, unspecified; E87.5 Hyperkalemia; G30.9 Alzheimer's disease, unspecified; F02.80 Dementia in other diseases classified elsewhere, unspecified severity, without behavioral disturbance, psychotic disturbance, mood disturbance, and anxiety; Z66 Do not resuscitate; Z74.01 Bed confinement status; M06.9 Rheumatoid arthritis, unspecified; B96.20 Unspecified Escherichia coli [E. coli] as the cause of diseases classified elsewhere; I12.9 Hypertensive chronic kidney disease with stage 1 through stage 4 chronic kidney disease, or unspecified chronic kidney disease; N18.9 Chronic kidney disease, unspecified; Z96.642 Presence of left artificial hip joint; Z79.82 Long term (current) use of aspirin
CPT/HCPCS: 36415; 36430; 70450; 71010; 80048; 80053; 80202; 81001; 82565; 83605; 83735; 84100; 84132; 84484; 84520; 85025; 85049; 85362; 85378; 85384; 85610; 85670; 85730; 86850; 86870; 86900; 86901; 86902; 86920; 87040; 87086; 92526; 92610; 93005; 94640; 94664; 96374; 96375; J1940; J0692; J1815; J2270; J2405; J3370; J3475; J3480; J7030; J7040; J7042; J7050; J7070; P9016